=== PATIENT | male | born 1955 | race African-American/Black ===

== ENCOUNTER 2022-04-14 14:12 | Inpatient (IN) | payer MEDICAID ==
[~2022-04-14] VITALS: Ht 170.2 cm; Wt 80.7 kg
[2022-04-14] MEDS ORDERED: NITROGLYCERIN OINT 1GM/INCH UDPKT TD ONE (15:15)
[2022-04-14] MEDS ORDERED: ASPIRIN 81MG TABLET PO ONE (15:15)
[2022-04-14] MEDS ORDERED: FUROSEMIDE 40MG/4ML VIAL IV ONE (15:15)
[2022-04-14 16:50] LABS: HEMATOCRIT. 34.7 % (42.0-52.0); HEMOGLOBIN. 10.8 g/dL (14.0-18.0); MEAN CORPUSCULAR HEMOGLOBIN 22.7 pg (28.0-32.0); MEAN CORPUSCULAR VOLUME 72.8 fL (80.0-94.0); MEAN PLATELET VOLUME 8.8 fl (7.4-10.4); PLATELET 195 x1000/uL (130-400); RED BLOOD CELL COUNT 4.77 mill/uL (4.7-6.1)
[2022-04-14 17:01] LABS: INR 1.3; PARTIAL THROMBOPLASTIN TIME 28.8 sec (23.4-31.0); PROTHROMBIN TIME 14.1 sec (9.6-11.0)
[2022-04-14 17:04] LABS: CHLORIDE 103 mEq/L (98-107)
[2022-04-14] MEDS ORDERED: POTASSIUM CHLORIDE 20MEQ TABLET SR PO ONE (18:00)
[2022-04-14 19:07] LABS: PLATELET ESTIMATE NORMAL
[2022-04-15] MEDS ORDERED: ACETAMINOPHEN 325MG TABLET PO PRN (08:00)
[2022-04-15] MEDS ORDERED: ONDANSETRON HCL 4MG/2ML INJ IV PRN (08:00)
[2022-04-15] MEDS: TAMSULOSIN HCL 0.4MG SR CAPSULE PO SCH (08:55)
[2022-04-15] MEDS: POTASSIUM CHLORIDE 20MEQ TABLET SR PO SCH (08:55)
[2022-04-15] MEDS: FUROSEMIDE 100MG/10ML VIAL IVP SCH ×2 (08:55→18:46)
[2022-04-15] MEDS: CARVEDILOL 12.5MG TABLET PO SCH ×2 (08:59→20:55)
[2022-04-15] MEDS: COLCHICINE 0.6MG TABLET PO SCH (09:20)
[2022-04-15 10:00] VITALS: BP 130/89
[2022-04-15 12:00] VITALS: BP 126/80
[2022-04-15] MEDS ORDERED: CARV25TA47 MT (13:53)
[2022-04-15] MEDS ORDERED: COLC0.6C3 MT (13:53)
[2022-04-15] MEDS ORDERED: BUME2TAB7 MT (13:53)
[2022-04-15] MEDS ORDERED: XAR15 MT (13:53)
[2022-04-15] MEDS ORDERED: ALLO100T MT (13:53)
[2022-04-15] MEDS ORDERED: ROSU20TA2 MT (13:53)
[2022-04-15] MEDS ORDERED: POTA-205 MT (13:53)
[2022-04-15] MEDS ORDERED: SPIR25TA6 MT (13:53)
[2022-04-15 16:00] VITALS: BP 112/85
[2022-04-15 18:04] VITALS: BP 130/89
[2022-04-15] MEDS: RIVAROXABAN 15 MG TABLET PO SCH (18:46)
[2022-04-15 20:00] VITALS: BP 119/86
[2022-04-16] VITALS: BP 110/86
[2022-04-16 04:00] VITALS: BP 129/90
[2022-04-16 08:00] VITALS: BP 129/96
[2022-04-16] MEDS: POTASSIUM CHLORIDE 20MEQ TABLET SR PO SCH (09:08)
[2022-04-16] MEDS: FUROSEMIDE 100MG/10ML VIAL IVP SCH ×2 (09:08→17:40)
[2022-04-16] MEDS: TAMSULOSIN HCL 0.4MG SR CAPSULE PO SCH (09:08)
[2022-04-16] MEDS: COLCHICINE 0.6MG TABLET PO SCH (09:08)
[2022-04-16] MEDS: CARVEDILOL 12.5MG TABLET PO SCH ×2 (09:08→20:34)
[2022-04-16 12:00] VITALS: BP 127/89
[2022-04-16] MEDS ORDERED: METOLAZONE 2.5MG TABLET PO SCH (13:00)
[2022-04-16 16:00] VITALS: BP 122/83
[2022-04-16] MEDS: SPIRONOLACTONE 25MG TABLET PO SCH (17:40)
[2022-04-16] MEDS: RIVAROXABAN 15 MG TABLET PO SCH (17:40)
[2022-04-16 20:00] VITALS: BP 118/83
[2022-04-17] VITALS: BP 121/86
[2022-04-17 04:00] VITALS: BP 113/79
[2022-04-17] MEDS: FUROSEMIDE 100MG/10ML VIAL IVP SCH ×2 (06:19→16:17)
[2022-04-17 08:00] VITALS: BP 120/86
[2022-04-17] MEDS: POTASSIUM CHLORIDE 20MEQ TABLET SR PO SCH (08:41)
[2022-04-17] MEDS: COLCHICINE 0.6MG TABLET PO SCH (08:41)
[2022-04-17] MEDS: SPIRONOLACTONE 25MG TABLET PO SCH (08:42)
[2022-04-17] MEDS: CARVEDILOL 12.5MG TABLET PO SCH ×2 (08:42→21:53)
[2022-04-17 09:15] LABS: HEMATOCRIT. 35.8 % (42.0-52.0); HEMOGLOBIN. 11.1 g/dL (14.0-18.0); MEAN CORPUSCULAR HEMOGLOBIN 22.5 pg (28.0-32.0); MEAN CORPUSCULAR VOLUME 72.8 fL (80.0-94.0); MEAN PLATELET VOLUME 8.9 fl (7.4-10.4); PLATELET 216 x1000/uL (130-400); RED BLOOD CELL COUNT 4.91 mill/uL (4.7-6.1)
[2022-04-17] MEDS: TAMSULOSIN HCL 0.4MG SR CAPSULE PO SCH (09:29)
[2022-04-17] MEDS ORDERED: POTASSIUM CHLORIDE 20MEQ TABLET SR PO NR (11:00)
[2022-04-17 12:00] VITALS: BP 127/88
[2022-04-17] MEDS ORDERED: POTASSIUM CHLORIDE INJ 40 MEQ in DEXT 5% WATER 500 ML IV NR (12:00)
[2022-04-17 13:06] LABS: FERRITIN 47 ng/mL (22-322)
[2022-04-17 13:09] LABS: NUCLEATED RED BLOOD CELLS 1 /100 WBC; PLATELET ESTIMATE NORMAL
[2022-04-17 13:11] LABS: INR 1.7; PROTHROMBIN TIME 17.1 sec (9.6-11.0)
[2022-04-17 13:17] LABS: HEPATITIS B SURFACE ANTIGEN NEGATIVE
[2022-04-17 14:52] LABS: VITAMIN B12 SERUM 710 pg/mL (211-911)
[2022-04-17 16:00] VITALS: BP 101/62
[2022-04-17 20:00] VITALS: BP 119/81
[2022-04-18] VITALS: BP 106/73
[2022-04-18 04:00] VITALS: BP 128/86
[2022-04-18 06:21] LABS: HEMATOCRIT. 34.5 % (42.0-52.0); HEMOGLOBIN. 10.8 g/dL (14.0-18.0); MEAN CORPUSCULAR VOLUME 73.3 fL (80.0-94.0); MEAN PLATELET VOLUME 9.1 fl (7.4-10.4); PLATELET 190 x1000/uL (130-400); RED BLOOD CELL COUNT 4.71 mill/uL (4.7-6.1); RED CELL DISTRIBUTION WIDTH 22.1 % (11.6-14.6)
[2022-04-18] MEDS: FUROSEMIDE 100MG/10ML VIAL IVP SCH ×2 (06:59→17:15)
[2022-04-18 07:42] LABS: HEPATITIS B SURFACE ANTIGEN NEGATIVE
[2022-04-18 08:00] VITALS: BP 146/92
[2022-04-18] MEDS: POTASSIUM CHLORIDE 20MEQ TABLET SR PO SCH (08:48)
[2022-04-18] MEDS: COLCHICINE 0.6MG TABLET PO SCH (08:49)
[2022-04-18] MEDS: CARVEDILOL 12.5MG TABLET PO SCH (08:56)
[2022-04-18] MEDS: TAMSULOSIN HCL 0.4MG SR CAPSULE PO SCH (08:56)
[2022-04-18] MEDS ORDERED: MAGNESIUM OXIDE 400MG TABLET PO SCH (09:00)
[2022-04-18] MEDS: SPIRONOLACTONE 25MG TABLET PO SCH (09:02)
[2022-04-18] MEDS ORDERED: ALBUMIN HUMAN 25GM/100ML (25%) IV NR (10:00)
[2022-04-18] MEDS ORDERED: CARV25TA47 MT (10:14)
[2022-04-18] MEDS ORDERED: ROSU20TA2 MT (10:14)
[2022-04-18] MEDS ORDERED: ALLO100T MT (10:14)
[2022-04-18] MEDS ORDERED: COLC0.6C3 MT (10:14)
[2022-04-18] MEDS ORDERED: POTA-205 MT (10:14)
[2022-04-18] MEDS ORDERED: SPIR25TA6 MT (10:14)
[2022-04-18] MEDS ORDERED: BUME2TAB7 MT (10:14)
[2022-04-18 11:15] LABS: INR 1.4; PROTHROMBIN TIME 14.5 sec (9.6-11.0)
[2022-04-18 15:13] LABS: PLATELET ESTIMATE NORMAL
[2022-04-18 16:00] VITALS: BP 110/80
[2022-04-18 20:00] VITALS: BP 116/71
== END 2022-04-18 21:20 | disposition home or self-care (01) | DRG 194 ==
LOC: ER 14:12 → EDBEDREQ 19:03 → 7WST 04-15 00:14 → MICUSO 04-15 01:44 → 7EST 04-15 10:00
PROVIDERS: ADMIT Internal Medicine; ATTEND Internal Medicine
DX: I11.0 Hypertensive heart disease with heart failure (principal); R18.8 Other ascites; K74.60 Unspecified cirrhosis of liver; I50.23 Acute on chronic systolic (congestive) heart failure; D50.9 Iron deficiency anemia, unspecified; K64.9 Unspecified hemorrhoids; K21.9 Gastro-esophageal reflux disease without esophagitis; E87.6 Hypokalemia; M10.9 Gout, unspecified; Z85.118 Personal history of other malignant neoplasm of bronchus and lung; Z85.46 Personal history of malignant neoplasm of prostate; Z91.199 Patient's noncompliance with other medical treatment and regimen due to unspecified reason; Z91.013 Allergy to seafood; Z79.82 Long term (current) use of aspirin
CPT/HCPCS: 36415; 71045; 76700; 80048; 80053; 80076; 82140; 82607; 82728; 82746; 83540; 83550; 83735; 83880; 84132; 84484; 85025; 85044; 86705; 86709; 86803; 87340; 93005; 93306; 93976; 99285; J1940; J3480; J7060; P9047

== ENCOUNTER 2022-10-29 02:04 | Inpatient (IN) | payer MEDICAID ==
[~2022-10-29] VITALS: Ht 170.2 cm; Wt 71.7 kg
[~2022-10-29 02:04] MED LIST: ALLO100T MT; BUME2TAB7 MT; CARV25TA47 MT; COLC0.6C3 MT; POTA-205 MT; ROSU20TA2 MT; SPIR25TA6 MT; XAR15 MT
[2022-10-29] MEDS ORDERED: ONDANSETRON HCL 4MG/2ML INJ IV STA (03:24)
[2022-10-29] MEDS ORDERED: MORPHINE SULFATE 4 MG/ML CPJ (NOT FOR IM USE) IV STA (03:24)
[2022-10-29] MEDS ORDERED: FUROSEMIDE 40MG/4ML VIAL IVP ONE (03:30)
[2022-10-29 03:42] LABS: CHLORIDE 107 mEq/L (98-107); INDEX HEMOLYSI 1 (1-3); INDEX ICTERIC 1 (1-4); INDEX LIPEMIC 1 (1-3); POTASSIUM 3.3 mEq/L (3.5-5.1); SODIUM 138 mEq/L (136-145)
[2022-10-29 03:44] LABS: BASOPHILS % 0.7 % (0.0-2.0); DIFFERENTIAL COMMENT 0; EOSINOPHILS % 0.4 % (0.0-5.0); HEMATOCRIT. 41.9 % (42.0-52.0); HEMOGLOBIN. 12.9 g/dL (14.0-18.0); LYMPHOCYTES % 7.5 % (20.0-50.0); MEAN CORPUSCULAR HEMOGLOBIN 23.3 pg (28.0-32.0); MEAN CORPUSCULAR HGB CONC 30.8 g/dL (31.0-37.0); MEAN CORPUSCULAR VOLUME 75.5 fL (80.0-94.0); MEAN PLATELET VOLUME 8.3 fl (7.4-10.4); MONOCYTES % 9.4 % (2.0-8.0); PLATELET 305 x1000/uL (130-400); RED BLOOD CELL COUNT 5.55 mill/uL (4.7-6.1); RED CELL DISTRIBUTION WIDTH 21.6 % (11.6-14.6); WHITE BLOOD COUNT 6.8 x1000/uL (4.5-11.0)
[2022-10-29 03:51] LABS: ALANINE AMINOTRANSFERASE 16 IU/L (13-61); ALBUMIN 2.9 g/dL (3.4-5.0); ASPARTATE AMINOTRANSFERASE 51 IU/L (15-37); BILIRUBIN TOTAL 1.5 mg/dL (0.1-1.0); CALCIUM 9.3 mg/dL (8.5-10.1); CARBON DIOXIDE 24 mEq/L (21-32); CREATININE 2.2 mg/dL (0.6-1.3); GLUCOSE 98 mg/dL (70-105); NT PRO B-TYPE NATRIURETIC PEP 22216 pg/mL (5-125); PROTEIN TOTAL 7.2 g/dL (6.0-8.3)
[2022-10-29 03:56] LABS: UREA NITROGEN BLOOD 81 mg/dL (7-21)
[2022-10-29 03:57] LABS: TROPONIN I HIGH SENSITIVITY 1778 ng/L (<78)
[2022-10-29 03:58] LABS: D-DIMER 7.06 mg/L FEU (<0.50); INR 1.3; PROTHROMBIN TIME 13.6 sec (9.6-11.0)
[2022-10-29] MEDS ORDERED: IOHEXOL-350 100 ML BOTTLE ONE (05:57)
[2022-10-29 06:31] LABS: TROPONIN I HIGH SENSITIVITY 1626 ng/L (<78)
[2022-10-29 13:57] VITALS: PULSE 92; RESP 16; O2SAT 100
[2022-10-29] MEDS: IPRATROPIUM/ALBUTEROL 0.5-3(2.5)MG/3ML NEB HHN SCH ×2 (13:57→21:36)
[2022-10-29 15:10] VITALS: BP_SYST 114; BP_DIAS 72; BP_DIAS 77; PULSE 98; RESP 21; TEMP 96.8
[2022-10-29 20:00] VITALS: BP 115/72; PULSE 100; RESP 20; TEMP 98.5
[2022-10-29 20:44] VITALS: PULSE 105; RESP 18; O2SAT 97
[2022-10-30] VITALS (9 sets, daily range): BP systolic 92–112; BP diastolic 57–68; PULSE 86–108; RESP 16–20; TEMP 97.7–98.4; O2SAT 92–98
[2022-10-30 06:22] LABS: HEMATOCRIT. 35.7 % (42.0-52.0); HEMOGLOBIN. 11.5 g/dL (14.0-18.0); MEAN CORPUSCULAR HEMOGLOBIN 23.9 pg (28.0-32.0); MEAN CORPUSCULAR HGB CONC 32.1 g/dL (31.0-37.0); MEAN CORPUSCULAR VOLUME 74.5 fL (80.0-94.0); MEAN PLATELET VOLUME 8.3 fl (7.4-10.4); PLATELET 249 x1000/uL (130-400); RED BLOOD CELL COUNT 4.79 mill/uL (4.7-6.1)
[2022-10-30 06:31] LABS: CALCIUM 8.8 mg/dL (8.5-10.1)
[2022-10-30 06:35] LABS: CREATININE 2.2 mg/dL (0.6-1.3)
[2022-10-30 06:41] LABS: POTASSIUM 2.8 mEq/L (3.5-5.1)
[2022-10-30 07:08] LABS: DIFFERENTIAL COMMENT 1
[2022-10-30] MEDS ORDERED: SODIUM BICARBONATE 4% (2.4MEQ) 5ML VIAL IV ONE (08:12)
[2022-10-30] MEDS ORDERED: LIDOCAINE HCL 1% 10 MG/ML 10ML VIAL ONE (08:13)
[2022-10-30] MEDS ORDERED: NALOXONE HCL 0.4MG/ML VIAL IV PRN (08:30)
[2022-10-30] MEDS: POTASSIUM CHLORIDE 20MEQ/PACKET PO SCH ×3 (08:39→16:48)
[2022-10-30] MEDS ORDERED: FUROSEMIDE 40MG/4ML VIAL IVP SCH (09:00)
[2022-10-30] MEDS: IPRATROPIUM/ALBUTEROL 0.5-3(2.5)MG/3ML NEB HHN SCH ×4 (10:05→21:29)
[2022-10-30 10:49] LABS: ANISOCYTOSIS 2+; MICROCYTOSIS 1+; PLATELET ESTIMATE NORMAL
[2022-10-30] MEDS: HYDROCODONE/ACETAMINOPHEN 5/325MG TABLET PO PRN ×2 (12:09→19:03)
[2022-10-30] MEDS ORDERED: KETOROLAC 10MG TABLET PO PRN (14:45)
[2022-10-30] MEDS ORDERED: CEFTRIAXONE 1GM PREMIX 50 ML IV SCH (14:45)
[2022-10-30] MEDS ORDERED: KETOROLAC 10MG TABLET PO SCH (14:45)
[2022-10-30] MEDS ORDERED: IPRATROPIUM/ALBUTEROL 0.5-3(2.5)MG/3ML NEB HHN PRN (15:15)
[2022-10-30] MEDS ORDERED: ALBUMIN HUMAN 12.5GM/50ML (25%) IV NR (15:30)
[2022-10-30] MEDS ORDERED: CLONIDINE 0.1MG TABLET PO PRN (15:30)
[2022-10-30] MEDS ORDERED: ENOXAPARIN 30MG/0.3ML SYR SUBCUT SCH (16:00)
[2022-10-30] MEDS: CEFTRIAXONE 1,000 MG in DEXTROSE 5% WATER 50 ML IV SCH (16:13)
[2022-10-30 16:49] LABS: T4 FREE 1.1 ng/dL (0.76-1.46); THYROID STIMULATING HORMONE 6.6 uIU/mL (0.36-3.74)
[2022-10-30 16:56] LABS: TROPONIN I HIGH SENSITIVITY 2502 ng/L (<78)
[2022-10-30 17:08] LABS: FOLIC ACID (FOLATE) SERUM 6.5 ng/mL (>5.38)
[2022-10-30 17:53] LABS: CLARITY URINE CLEAR (CLEAR); COLOR URINE YELLOW (YELLOW); GLUCOSE URINE NEGATIVE (NEGATIVE); PROTEIN URINE NEGATIVE (NEGATIVE); SPECIFIC GRAVITY URINE 1.009 (1.005-1.030)
[2022-10-30 17:54] LABS: KETONES URINE NEGATIVE (NEGATIVE); LEUKOCYTE ESTERASE URINE NEGATIVE (NEGATIVE); NITRITE URINE NEGATIVE (NEGATIVE); OCCULT BLOOD URINE NEGATIVE (NEGATIVE); UROBILINOGEN URINE 0.2 E.U./dL (0.2-1.0)
[2022-10-30] MEDS ORDERED: FUROSEMIDE 100MG/10ML VIAL IVP SCH (18:00)
[2022-10-30] MEDS: BUMETANIDE 1MG/4ML VIAL IV SCH (18:00)
[2022-10-30 19:38] LABS: ALBUMIN 2.4 g/dL (3.4-5.0)
[2022-10-30 21:35] LABS: BODY FLUID RBC 305 /cu mm (0-2000); BODY FLUID WBC 60 /cu mm (0-200)
[2022-10-30 21:36] LABS: BODY FLUID MONOCYTES 12 %
[2022-10-30] MEDS: FAMOTIDINE 20MG TABLET PO SCH (21:51)
[2022-10-30 22:48] LABS: TROPONIN I HIGH SENSITIVITY 2141 ng/L (<78)
[2022-10-31] VITALS (9 sets, daily range): BP systolic 98–134; BP diastolic 60–97; PULSE 98–108; RESP 14–20; TEMP 97.7–98.2; O2SAT 97–100
[2022-10-31] MEDS: IPRATROPIUM/ALBUTEROL 0.5-3(2.5)MG/3ML NEB HHN SCH ×4 (02:09→20:53)
[2022-10-31 05:42] LABS: HEMATOCRIT. 36.3 % (42.0-52.0); HEMOGLOBIN. 11.7 g/dL (14.0-18.0); MEAN CORPUSCULAR HEMOGLOBIN 23.8 pg (28.0-32.0); MEAN CORPUSCULAR HGB CONC 32.1 g/dL (31.0-37.0); MEAN CORPUSCULAR VOLUME 74.3 fL (80.0-94.0); MEAN PLATELET VOLUME 8.1 fl (7.4-10.4); PLATELET 221 x1000/uL (130-400); RED BLOOD CELL COUNT 4.89 mill/uL (4.7-6.1); RED CELL DISTRIBUTION WIDTH 21.1 % (11.6-14.6); WHITE BLOOD COUNT 5.6 x1000/uL (4.5-11.0)
[2022-10-31 05:43] LABS: DIFFERENTIAL COMMENT 1
[2022-10-31] MEDS: BUMETANIDE 1MG/4ML VIAL IV SCH ×2 (06:28→18:54)
[2022-10-31 07:29] LABS: CALCIUM 8.2 mg/dL (8.5-10.1); CREATININE 1.9 mg/dL (0.6-1.3)
[2022-10-31 07:37] LABS: POTASSIUM 2.7 mEq/L (3.5-5.1)
[2022-10-31] MEDS: ASPIRIN 81MG TABLET PO SCH (08:57)
[2022-10-31] MEDS: KCL 20MEQ/100ML PREMIX 100 ML IV SCH ×5 (08:57→23:58)
[2022-10-31] MEDS: ENOXAPARIN 40MG/0.4ML SYR SUBCUT SCH (08:58)
[2022-10-31 13:08] LABS: CALCIUM 8.3 mg/dL (8.5-10.1)
[2022-10-31 13:13] LABS: CREATININE 1.8 mg/dL (0.6-1.3)
[2022-10-31 13:14] LABS: POTASSIUM 2.6 mEq/L (3.5-5.1)
[2022-10-31] MEDS ORDERED: MAGNESIUM 2 G PREMIX 50 ML IV SCH (15:00)
[2022-10-31] MEDS: IRON SUCROSE COMPLEX 100 MG/5 ML ML IV SCH (19:11)
[2022-10-31] MEDS: HYDROCODONE/ACETAMINOPHEN 5/325MG TABLET PO PRN (20:46)
[2022-10-31] MEDS: FAMOTIDINE 20MG TABLET PO SCH (21:19)
[2022-10-31] MEDS: CEFTRIAXONE 1,000 MG in DEXTROSE 5% WATER 50 ML IV SCH (21:24)
[2022-10-31 21:34] LABS: CALCIUM 8.4 mg/dL (8.5-10.1); CREATININE 1.6 mg/dL (0.6-1.3)
[2022-10-31 21:35] LABS: POTASSIUM 3.3 mEq/L (3.5-5.1)
[2022-10-31 21:41] LABS: PROSTRATE SPECIFIC AG TOTAL 5.65 ng/mL (0.0-4.0)
[2022-10-31 21:42] LABS: CARCINO EMBRYONIC ANTIGEN 0.9 ng/ml
[2022-11-01] VITALS (11 sets, daily range): BP systolic 100–143; BP diastolic 57–80; PULSE 96–118; RESP 13–20; TEMP 97.8–99.4; O2SAT 96–100
[2022-11-01] MEDS: HYDROCODONE/ACETAMINOPHEN 5/325MG TABLET PO PRN (01:22)
[2022-11-01] MEDS: KCL 20MEQ/100ML PREMIX 100 ML IV SCH ×3 (02:11→19:16)
[2022-11-01] MEDS ORDERED: KCL 20MEQ/100ML PREMIX 100 ML IV SCH (02:15)
[2022-11-01] MEDS: IPRATROPIUM/ALBUTEROL 0.5-3(2.5)MG/3ML NEB HHN SCH ×4 (03:25→20:44)
[2022-11-01] MEDS: BUMETANIDE 1MG/4ML VIAL IV SCH ×2 (06:14→19:15)
[2022-11-01 07:21] LABS: HEMATOCRIT. 37.4 % (42.0-52.0); HEMOGLOBIN. 12.2 g/dL (14.0-18.0); MEAN CORPUSCULAR HEMOGLOBIN 23.9 pg (28.0-32.0); MEAN CORPUSCULAR HGB CONC 32.5 g/dL (31.0-37.0); MEAN CORPUSCULAR VOLUME 73.4 fL (80.0-94.0); MEAN PLATELET VOLUME 8.6 fl (7.4-10.4); PLATELET 261 x1000/uL (130-400); RED CELL DISTRIBUTION WIDTH 21.2 % (11.6-14.6); WHITE BLOOD COUNT 6.6 x1000/uL (4.5-11.0)
[2022-11-01 07:39] LABS: DIFFERENTIAL COMMENT 1
[2022-11-01 08:14] LABS: ALBUMIN 2.3 g/dL (3.4-5.0); BILIRUBIN DIRECT 0.4 mg/dL (0.0-0.2); BILIRUBIN TOTAL 1.2 mg/dL (0.1-1.0); CALCIUM 8.3 mg/dL (8.5-10.1); CREATININE 1.7 mg/dL (0.6-1.3); PROTEIN TOTAL 6.1 g/dL (6.0-8.3)
[2022-11-01 08:27] LABS: POTASSIUM 2.7 mEq/L (3.5-5.1)
[2022-11-01] MEDS: ASPIRIN 81MG TABLET PO SCH (10:28)
[2022-11-01] MEDS: ENOXAPARIN 40MG/0.4ML SYR SUBCUT SCH (10:29)
[2022-11-01 11:35] LABS: MICROCYTOSIS 1+; PLATELET ESTIMATE NORMAL
[2022-11-01 11:36] LABS: ANISOCYTOSIS 1+
[2022-11-01 15:06] LABS: BG BASE EXCESS 8.2 mmol/L (-2.0-2.0); BG CARBOXYHEMOGLOBIN 1.3 % (0.5-1.5); BG DEOXYHEMOGLOBIN 5.4 % (0.0-5.0); BG FRACTION INSPIRED OXYGEN 21; BG METHEMOGLOBIN 0.5 % (0.0-1.5); BG OXYGEN SATURATION 94.5 % (92.0-98.5); BG OXYHEMOGLOBIN 92.8 % (94.0-97.0); BG PCO2 41.2 mmHg (35.0-45.0); BG PH 7.508 (7.350-7.450); BG PO2 69.8 mmHg (75.0-100.0); BG SAMPLE SITE RIGHT BRACHIAL; BG TOTAL HEMOGLOBIN 12.6 g/dL (12.0-18.0); BG VENT MODE ROOM AIR
[2022-11-01 16:16] LABS: CALCIUM 8.4 mg/dL (8.5-10.1)
[2022-11-01 16:20] LABS: CREATININE 1.6 mg/dL (0.6-1.3)
[2022-11-01 16:42] LABS: POTASSIUM 2.4 mEq/L (3.5-5.1)
[2022-11-01] MEDS ORDERED: KCL 20MEQ/100ML PREMIX 100 ML IV NR (16:51)
[2022-11-01] MEDS: CEFTRIAXONE 1,000 MG in DEXTROSE 5% WATER 50 ML IV SCH (19:09)
[2022-11-01] MEDS: IRON SUCROSE COMPLEX 100 MG/5 ML ML IV SCH (19:15)
[2022-11-01] MEDS: APIXABAN 5 MG TABLET PO SCH ×2 (19:16→21:00)
[2022-11-01] MEDS ORDERED: POTASSIUM CHLORIDE 20MEQ TABLET SR PO NR (21:00)
[2022-11-01] MEDS: FAMOTIDINE 20MG TABLET PO SCH (22:21)
[2022-11-02] MEDS: IPRATROPIUM/ALBUTEROL 0.5-3(2.5)MG/3ML NEB HHN SCH ×3 (00:53→22:06)
[2022-11-02 03:43] VITALS: BP 108/79; PULSE 110; TEMP 97.8
[2022-11-02 04:26] LABS: PLATELET ESTIMATE NORMAL
[2022-11-02 06:15] LABS: HEMATOCRIT. 36.1 % (42.0-52.0); HEMOGLOBIN. 11.6 g/dL (14.0-18.0); MEAN CORPUSCULAR HEMOGLOBIN 23.7 pg (28.0-32.0); MEAN CORPUSCULAR HGB CONC 32.1 g/dL (31.0-37.0); MEAN CORPUSCULAR VOLUME 73.7 fL (80.0-94.0); MEAN PLATELET VOLUME 8.6 fl (7.4-10.4); PLATELET 241 x1000/uL (130-400)
[2022-11-02 06:17] LABS: DIFFERENTIAL COMMENT 1
[2022-11-02 06:24] LABS: ALBUMIN 2.2 g/dL (3.4-5.0); BILIRUBIN DIRECT 0.6 mg/dL (0.0-0.2); BILIRUBIN TOTAL 1.3 mg/dL (0.1-1.0); CALCIUM 8.4 mg/dL (8.5-10.1); CREATININE 1.5 mg/dL (0.6-1.3); PROTEIN TOTAL 5.9 g/dL (6.0-8.3)
[2022-11-02 06:27] LABS: POTASSIUM 2.8 mEq/L (3.5-5.1)
[2022-11-02] MEDS: KCL 20MEQ/100ML PREMIX 100 ML IV SCH ×2 (06:27→09:08)
[2022-11-02] MEDS: BUMETANIDE 1MG/4ML VIAL IV SCH ×2 (06:30→18:48)
[2022-11-02 08:00] VITALS: BP 110/78; PULSE 106; RESP 22; TEMP 97.4
[2022-11-02] MEDS ORDERED: LOPERAMIDE HCL 2MG CAPSULE PO NR (08:30)
[2022-11-02] MEDS: APIXABAN 5 MG TABLET PO SCH ×2 (09:08→22:10)
[2022-11-02 10:09] LABS: ALPHA FETOPROTEIN TUMOR MARKER 5.6 ng/mL (0.0-8.4)
[2022-11-02] MEDS ORDERED: APIX5TAB4 PO ×3 (10:38→14:23)
[2022-11-02] MEDS ORDERED: POTA-205 MT ×2 (10:38→14:23)
[2022-11-02] MEDS ORDERED: BUME1TAB8 MT ×2 (10:44→14:23)
[2022-11-02 12:00] VITALS: BP 95/70; PULSE 106; RESP 20; TEMP 98.5
[2022-11-02 13:07] LABS: CALCIUM 8.7 mg/dL (8.5-10.1); CREATININE 1.6 mg/dL (0.6-1.3); POTASSIUM 3.2 mEq/L (3.5-5.1)
[2022-11-02] MEDS ORDERED: FERR325T6 MT (14:27)
[2022-11-02] MEDS ORDERED: IMOD PO (14:27)
[2022-11-02] MEDS ORDERED: SPIR25TA MT (14:30)
[2022-11-02] MEDS: CEFTRIAXONE 1,000 MG in DEXTROSE 5% WATER 50 ML IV SCH (15:22)
[2022-11-02 16:00] VITALS: BP 108/76; PULSE 105; RESP 4; TEMP 97.8
[2022-11-02] MEDS ORDERED: LEVO-65 MT (16:16)
[2022-11-02] MEDS: IRON SUCROSE COMPLEX 100 MG/5 ML ML IV SCH (16:16)
[2022-11-02 16:52] VITALS: BP 108/76; PULSE 89; TEMP 98.8; O2SAT 100
[2022-11-02 20:00] VITALS: BP 117/79; PULSE 106; RESP 18; TEMP 97.1
[2022-11-02 20:54] LABS: ANISOCYTOSIS 2+; MICROCYTOSIS 2+; PLATELET ESTIMATE NORMAL
[2022-11-02 20:55] LABS: TARGET CELLS 1+
[2022-11-02] MEDS: FAMOTIDINE 20MG TABLET PO SCH (22:10)
[2022-11-03] VITALS: BP 116/73; PULSE 108; RESP 20; TEMP 97.1
[2022-11-03 04:00] VITALS: BP 143/88; PULSE 112; RESP 18; TEMP 97.2
[2022-11-03] MEDS: BUMETANIDE 1MG/4ML VIAL IV SCH ×2 (06:00→18:00)
[2022-11-03 08:00] VITALS: BP 115/60; PULSE 105; RESP 21; TEMP 98.1
[2022-11-03] MEDS ORDERED: POTASSIUM CHLORIDE 20MEQ TABLET SR PO NR (08:15)
[2022-11-03] MEDS ORDERED: POTASSIUM CHLORIDE 20MEQ TABLET SR PO ONE (08:30)
[2022-11-03] MEDS: APIXABAN 5 MG TABLET PO SCH (08:44)
[2022-11-03] MEDS: TAMSULOSIN HCL 0.4MG SR CAPSULE PO SCH (08:44)
[2022-11-03] MEDS: IPRATROPIUM/ALBUTEROL 0.5-3(2.5)MG/3ML NEB HHN SCH ×2 (09:10→14:41)
[2022-11-03 10:59] LABS: BASOPHILS % 0.8 % (0.0-2.0); DIFFERENTIAL COMMENT 0; EOSINOPHILS % 1.4 % (0.0-5.0); HEMOGLOBIN. 11.6 g/dL (14.0-18.0); LYMPHOCYTES % 8.1 % (20.0-50.0); MEAN CORPUSCULAR HEMOGLOBIN 23.3 pg (28.0-32.0); MEAN CORPUSCULAR HGB CONC 31.4 g/dL (31.0-37.0); MEAN CORPUSCULAR VOLUME 74.1 fL (80.0-94.0); MEAN PLATELET VOLUME 7.8 fl (7.4-10.4); MONOCYTES % 14.3 % (2.0-8.0); NEUTROPHILS % 75.4 % (40.0-76.0); PLATELET 254 x1000/uL (130-400); RED BLOOD CELL COUNT 4.99 mill/uL (4.7-6.1); RED CELL DISTRIBUTION WIDTH 20.9 % (11.6-14.6); WHITE BLOOD COUNT 7.8 x1000/uL (4.5-11.0)
[2022-11-03 11:03] LABS: POTASSIUM 2.9 mEq/L (3.5-5.1)
[2022-11-03 11:08] LABS: CALCIUM 8.7 mg/dL (8.5-10.1); CREATININE 1.7 mg/dL (0.6-1.3)
[2022-11-03 12:00] VITALS: BP 88/63; PULSE 104; RESP 20; TEMP 98
[2022-11-03] MEDS: CEFTRIAXONE 1,000 MG in DEXTROSE 5% WATER 50 ML IV SCH (13:29)
[2022-11-03] MEDS: KCL 20MEQ/100ML PREMIX 100 ML IV SCH ×2 (15:32→18:29)
[2022-11-03 16:00] VITALS: BP 92/59; PULSE 101; RESP 20; TEMP 98.3
[2022-11-03] MEDS: FAMOTIDINE 20MG TABLET PO SCH (22:34)
[2022-11-03] MEDS: ENOXAPARIN 80MG/0.8ML SYR SUBCUT SCH (22:35)
[2022-11-03 22:47] VITALS: BP 118/91; PULSE 104; RESP 17; TEMP 98.9
[2022-11-04] VITALS: BP 112/75; PULSE 103; RESP 21; TEMP 98.5
[2022-11-04 04:00] VITALS: BP 137/94; PULSE 107; RESP 12; TEMP 98.1
[2022-11-04] MEDS: BUMETANIDE 1MG/4ML VIAL IV SCH ×2 (06:00→17:26)
[2022-11-04 06:47] LABS: HEMATOCRIT. 34.6 % (42.0-52.0); HEMOGLOBIN. 11.1 g/dL (14.0-18.0); MEAN CORPUSCULAR HEMOGLOBIN 23.6 pg (28.0-32.0); MEAN CORPUSCULAR HGB CONC 32.1 g/dL (31.0-37.0); MEAN CORPUSCULAR VOLUME 73.6 fL (80.0-94.0); MEAN PLATELET VOLUME 8.2 fl (7.4-10.4); PLATELET 255 x1000/uL (130-400); RED CELL DISTRIBUTION WIDTH 20.7 % (11.6-14.6); WHITE BLOOD COUNT 7.1 x1000/uL (4.5-11.0)
[2022-11-04 06:51] LABS: CALCIUM 8.5 mg/dL (8.5-10.1); POTASSIUM 2.9 mEq/L (3.5-5.1)
[2022-11-04 06:54] LABS: CREATININE 1.6 mg/dL (0.6-1.3)
[2022-11-04 07:02] LABS: DIFFERENTIAL COMMENT 1
[2022-11-04] MEDS: LOPERAMIDE HCL 2MG CAPSULE PO PRN (07:59)
[2022-11-04] MEDS: TAMSULOSIN HCL 0.4MG SR CAPSULE PO SCH (07:59)
[2022-11-04 08:00] VITALS: BP 133/66; PULSE 105; RESP 18; TEMP 97.8
[2022-11-04] MEDS: ENOXAPARIN 80MG/0.8ML SYR SUBCUT SCH ×2 (08:00→21:22)
[2022-11-04] MEDS: POTASSIUM CHLORIDE 20MEQ TABLET SR PO SCH ×2 (08:08→17:24)
[2022-11-04] MEDS ORDERED: POTASSIUM CHLORIDE 20MEQ TABLET SR PO SCH (09:00)
[2022-11-04] MEDS ORDERED: POTASSIUM CHLORIDE INJ 40 MEQ in DEXT 5% WATER 250 ML IV NR (09:30)
[2022-11-04 12:00] VITALS: BP 114/78; PULSE 103; RESP 22; TEMP 98
[2022-11-04 15:15] LABS: ANISOCYTOSIS 2+; MICROCYTOSIS 2+; PLATELET ESTIMATE NORMAL
[2022-11-04 16:00] VITALS: BP 112/76; PULSE 106; RESP 20; TEMP 98.2
[2022-11-04] MEDS: LOSARTAN POTASSIUM 25 MG TABLET PO SCH (17:24)
[2022-11-04] MEDS: METOPROLOL SUCCINATE 50MG ER TABLET PO SCH (17:26)
[2022-11-04] MEDS: CEFTRIAXONE 1,000 MG in DEXTROSE 5% WATER 50 ML IV SCH (17:27)
[2022-11-04 20:00] VITALS: BP 116/72; PULSE 112; RESP 16; TEMP 97.7
[2022-11-04] MEDS: FAMOTIDINE 20MG TABLET PO SCH (21:21)
[2022-11-05] VITALS: BP 101/66; PULSE 109; RESP 20; TEMP 97.5
[2022-11-05 04:00] VITALS: BP 106/79; PULSE 102; RESP 18; TEMP 97.8
[2022-11-05] MEDS: BUMETANIDE 1MG/4ML VIAL IV SCH ×2 (05:43→18:25)
[2022-11-05 08:00] VITALS: BP 110/67; PULSE 101; RESP 20; TEMP 98
[2022-11-05] MEDS: LOSARTAN POTASSIUM 25 MG TABLET PO SCH (09:26)
[2022-11-05] MEDS: TAMSULOSIN HCL 0.4MG SR CAPSULE PO SCH (09:31)
[2022-11-05] MEDS: METOPROLOL SUCCINATE 50MG ER TABLET PO SCH (09:31)
[2022-11-05] MEDS: POTASSIUM CHLORIDE 20MEQ TABLET SR PO SCH ×2 (09:31→15:32)
[2022-11-05] MEDS: ENOXAPARIN 80MG/0.8ML SYR SUBCUT SCH (09:32)
[2022-11-05 12:07] VITALS: BP 105/84; PULSE 96; RESP 22; TEMP 97.9
[2022-11-05 12:17] LABS: POTASSIUM 5.2 mEq/L (3.5-5.1)
[2022-11-05 12:21] LABS: CALCIUM 9.1 mg/dL (8.5-10.1); CREATININE 1.8 mg/dL (0.6-1.3)
[2022-11-05 19:05] VITALS: BP 103/78; PULSE 89; RESP 20; TEMP 97.8
[2022-11-05 20:00] VITALS: BP 109/87; PULSE 92; RESP 10; TEMP 97.4
[2022-11-05] MEDS: HYDRALAZINE HCL 10MG TABLET PO SCH (22:00)
[2022-11-05] MEDS: FAMOTIDINE 20MG TABLET PO SCH (22:03)
[2022-11-05] MEDS: LOPERAMIDE HCL 2MG CAPSULE PO PRN (22:03)
[2022-11-06] VITALS (8 sets, daily range): BP systolic 91–129; BP diastolic 44–77; PULSE 85–95; RESP 12–20; TEMP 97.5–98.3
[2022-11-06] MEDS: HYDRALAZINE HCL 10MG TABLET PO SCH ×3 (06:00→22:00)
[2022-11-06] MEDS: BUMETANIDE 1MG/4ML VIAL IV SCH ×2 (06:00→22:45)
[2022-11-06 07:36] LABS: INR 1.3
[2022-11-06 07:41] LABS: CHLORIDE 100 mEq/L (98-107); INDEX HEMOLYSI 1 (1-3); INDEX ICTERIC 2 (1-4); INDEX LIPEMIC 1 (1-3); POTASSIUM 5.5 mEq/L (3.5-5.1); SODIUM 137 mEq/L (136-145)
[2022-11-06 07:50] LABS: HEMATOCRIT. 39.6 % (42.0-52.0); HEMOGLOBIN. 12.5 g/dL (14.0-18.0); MEAN CORPUSCULAR HEMOGLOBIN 23.6 pg (28.0-32.0); MEAN CORPUSCULAR HGB CONC 31.6 g/dL (31.0-37.0); MEAN CORPUSCULAR VOLUME 74.9 fL (80.0-94.0); MEAN PLATELET VOLUME 8.8 fl (7.4-10.4); PLATELET 292 x1000/uL (130-400); RED BLOOD CELL COUNT 5.29 mill/uL (4.7-6.1); RED CELL DISTRIBUTION WIDTH 20.7 % (11.6-14.6); WHITE BLOOD COUNT 7.1 x1000/uL (4.5-11.0)
[2022-11-06 07:52] LABS: ALANINE AMINOTRANSFERASE 26 IU/L (13-61); ALBUMIN 2.5 g/dL (3.4-5.0); ASPARTATE AMINOTRANSFERASE 67 IU/L (15-37); CALCIUM 9.2 mg/dL (8.5-10.1); CARBON DIOXIDE 29 mEq/L (21-32); CREATININE 2.4 mg/dL (0.6-1.3); GLUCOSE 83 mg/dL (70-105); PROTEIN TOTAL 6.6 g/dL (6.0-8.3); UREA NITROGEN BLOOD 68 mg/dL (7-21)
[2022-11-06 08:05] LABS: DIFFERENTIAL COMMENT 1
[2022-11-06] MEDS: METOPROLOL SUCCINATE 50MG ER TABLET PO SCH (09:00)
[2022-11-06] MEDS ORDERED: SODIUM POLYSTYRENE SULFONATE 15 G/60 ML BOT PO NR (09:00)
[2022-11-06] MEDS: TAMSULOSIN HCL 0.4MG SR CAPSULE PO SCH (09:00)
[2022-11-06] MEDS ORDERED: FUROSEMIDE 40MG/4ML VIAL IV NR (11:14)
[2022-11-06] MEDS ORDERED: DEXTROSE 50% WATER 50ML SYRINGE IV ONE ×2 (11:15)
[2022-11-06] MEDS ORDERED: INSULIN REGULAR (HUMULIN R) 300UNITS/3ML VIAL IV NR (11:15)
[2022-11-06] MEDS ORDERED: INSULIN REGULAR (HUMULIN R) UD 100 UNITS/ML SYR IV ONE (11:15)
[2022-11-06] MEDS ORDERED: CALCIUM CHLORIDE 1GM/10ML SYR IV NR (11:15)
[2022-11-06] MEDS ORDERED: NALOXONE HCL 0.4MG/ML VIAL IV PRN (14:15)
[2022-11-06] MEDS ORDERED: CEFAZOLIN SODIUM 1000MG/VIAL ONE (14:18)
[2022-11-06] MEDS ORDERED: ETOMIDATE 2MG/ML 10ML VIAL IV ONE (14:18)
[2022-11-06] MEDS ORDERED: LIDOCAINE HCL 1% 10 MG/ML 10ML VIAL ONE ×2 (14:18→15:15)
[2022-11-06] MEDS ORDERED: PHENYLEPHRINE HCL 10 MG/ML 1ML (IV VIAL) IV ONE (14:30)
[2022-11-06 14:40] LABS: POTASSIUM 4.9 mEq/L (3.5-5.1)
[2022-11-06 14:43] LABS: CALCIUM 9.8 mg/dL (8.5-10.1)
[2022-11-06 14:52] LABS: CREATININE 2.3 mg/dL (0.6-1.3)
[2022-11-06] MEDS ORDERED: HEPARIN 1000 UNITS/ML 10ML ONE (15:00)
[2022-11-06] MEDS ORDERED: HEPARIN SODIUM 1,000 UNIT/1ML VIAL IV ONE (15:03)
[2022-11-06] MEDS ORDERED: MIDAZOLAM HCL 2 MG/2 ML VIAL ONE ×2 (15:09→15:19)
[2022-11-06] MEDS ORDERED: BUPIVACAINE HCL/PF 0.5% (5MG/ML) 10ML ONE (15:15)
[2022-11-06 15:20] LABS: LACTIC ACID 2.3 mmol/L (0.4-2.0)
[2022-11-06] MEDS ORDERED: KETAMINE HCL 50 MG/ML 10ML ONE (15:22)
[2022-11-06] MEDS ORDERED: EPHEDRINE SULFATE 50MG/ML VIAL IM NR ×2 (16:30→17:15)
[2022-11-06] MEDS ORDERED: EPHEDRINE SULFATE 50MG/ML VIAL IV NR ×2 (16:30→17:15)
[2022-11-06] MEDS ORDERED: DEXTROSE 50% WATER 50ML SYRINGE IV NR (19:00)
[2022-11-06 20:11] LABS: ANISOCYTOSIS 1+; HYPOCHROMASIA 1+; MICROCYTOSIS 2+; PLATELET ESTIMATE NORMAL
[2022-11-06] MEDS: FAMOTIDINE 20MG TABLET PO SCH (22:37)
[2022-11-07 00:16] VITALS: BP 101/67; PULSE 85; RESP 18; TEMP 97.4
[2022-11-07 04:00] VITALS: BP 90/65; PULSE 88; RESP 18; TEMP 97.9
[2022-11-07 05:31] LABS: POTASSIUM 5.2 mEq/L (3.5-5.1)
[2022-11-07 05:35] LABS: CALCIUM 9.4 mg/dL (8.5-10.1); CREATININE 2.5 mg/dL (0.6-1.3)
[2022-11-07] MEDS: HYDRALAZINE HCL 10MG TABLET PO SCH ×3 (06:00→21:37)
[2022-11-07 06:19] LABS: BASOPHILS % 0.4 % (0.0-2.0); DIFFERENTIAL COMMENT 0; EOSINOPHILS % 0.6 % (0.0-5.0); HEMATOCRIT. 37.7 % (42.0-52.0); HEMOGLOBIN. 11.7 g/dL (14.0-18.0); LYMPHOCYTES % 8.5 % (20.0-50.0); MEAN CORPUSCULAR HEMOGLOBIN 23.4 pg (28.0-32.0); MEAN CORPUSCULAR VOLUME 75.4 fL (80.0-94.0); MEAN PLATELET VOLUME 9.3 fl (7.4-10.4); MONOCYTES % 13.6 % (2.0-8.0); NEUTROPHILS % 76.9 % (40.0-76.0); PLATELET 272 x1000/uL (130-400); RED BLOOD CELL COUNT 5.01 mill/uL (4.7-6.1); RED CELL DISTRIBUTION WIDTH 20.9 % (11.6-14.6); WHITE BLOOD COUNT 5.7 x1000/uL (4.5-11.0)
[2022-11-07 08:00] VITALS: BP 97/60; PULSE 88; RESP 20; TEMP 97.4
[2022-11-07] MEDS: TAMSULOSIN HCL 0.4MG SR CAPSULE PO SCH (08:58)
[2022-11-07] MEDS: BUMETANIDE 1MG/4ML VIAL IV SCH ×2 (08:58→22:10)
[2022-11-07] MEDS: METOPROLOL SUCCINATE 50MG ER TABLET PO SCH (08:59)
[2022-11-07] MEDS: MORPHINE SULFATE 2 MG/ML CPJ (NOT FOR IM USE) IV PRN (09:08)
[2022-11-07] MEDS ORDERED: SODIUM POLYSTYRENE SULFONATE 15 G/60 ML BOT PO NR (09:45)
[2022-11-07] MEDS: APIXABAN 5 MG TABLET PO SCH ×2 (10:16→18:04)
[2022-11-07 12:00] VITALS: BP 101/58; PULSE 89; RESP 20; TEMP 97.5
[2022-11-07 16:00] VITALS: BP 92/59; PULSE 91; RESP 21; TEMP 98.8
[2022-11-07 19:08] LABS: OVA & PARASITE EXAM Final report (.)
[2022-11-07 20:00] VITALS: BP 99/64; PULSE 93; RESP 24; TEMP 98.4
[2022-11-07] MEDS: FAMOTIDINE 20MG TABLET PO SCH (21:35)
[2022-11-08] VITALS: BP 101/74; PULSE 73; RESP 23; TEMP 98.5
[2022-11-08 04:00] VITALS: BP 103/70; PULSE 82; RESP 11; TEMP 98.2
[2022-11-08 06:16] LABS: HEMATOCRIT. 33.8 % (42.0-52.0); HEMOGLOBIN. 10.4 g/dL (14.0-18.0); MEAN CORPUSCULAR HEMOGLOBIN 23.5 pg (28.0-32.0); MEAN CORPUSCULAR HGB CONC 30.9 g/dL (31.0-37.0); MEAN CORPUSCULAR VOLUME 76.1 fL (80.0-94.0); MEAN PLATELET VOLUME 9.1 fl (7.4-10.4); PLATELET 198 x1000/uL (130-400); RED BLOOD CELL COUNT 4.44 mill/uL (4.7-6.1); RED CELL DISTRIBUTION WIDTH 20.5 % (11.6-14.6); WHITE BLOOD COUNT 6.8 x1000/uL (4.5-11.0)
[2022-11-08] MEDS: HYDRALAZINE HCL 10MG TABLET PO SCH ×3 (06:25→21:33)
[2022-11-08 06:43] LABS: DIFFERENTIAL COMMENT 1
[2022-11-08 06:53] LABS: CHLORIDE 103 mEq/L (98-107); INDEX HEMOLYSI 2 (1-3); INDEX ICTERIC 1 (1-4); INDEX LIPEMIC 1 (1-3); POTASSIUM 3.7 mEq/L (3.5-5.1); SODIUM 138 mEq/L (136-145)
[2022-11-08 07:03] LABS: ALANINE AMINOTRANSFERASE 19 IU/L (13-61); ALBUMIN 2.1 g/dL (3.4-5.0); ASPARTATE AMINOTRANSFERASE 43 IU/L (15-37); BILIRUBIN TOTAL 0.8 mg/dL (0.1-1.0); CALCIUM 8.5 mg/dL (8.5-10.1); CARBON DIOXIDE 32 mEq/L (21-32); CREATININE 2.1 mg/dL (0.6-1.3); GLUCOSE 83 mg/dL (70-105); PHOSPHORUS 2.6 mg/dL (2.5-4.9); PROTEIN TOTAL 5.6 g/dL (6.0-8.3); UREA NITROGEN BLOOD 66 mg/dL (7-21)
[2022-11-08 08:52] VITALS: BP 100/47; PULSE 84; RESP 20; TEMP 97.6
[2022-11-08] MEDS: APIXABAN 5 MG TABLET PO SCH (08:54)
[2022-11-08] MEDS: BUMETANIDE 1MG/4ML VIAL IV SCH ×2 (08:54→21:33)
[2022-11-08] MEDS: TAMSULOSIN HCL 0.4MG SR CAPSULE PO SCH (08:54)
[2022-11-08] MEDS: METOPROLOL SUCCINATE 50MG ER TABLET PO SCH (08:54)
[2022-11-08] MEDS ORDERED: LOV80 SUBCUT (12:21)
[2022-11-08] MEDS ORDERED: METO-385 PO (12:21)
[2022-11-08] MEDS ORDERED: TAMS-11 PO (12:21)
[2022-11-08 12:31] VITALS: BP 105/69; PULSE 88; RESP 20; TEMP 97.3
[2022-11-08 13:11] LABS: MICROCYTOSIS 1+; NUCLEATED RED BLOOD CELLS 1 /100 WBC; PLATELET ESTIMATE NORMAL
[2022-11-08 13:13] LABS: HYPOCHROMASIA 1+
[2022-11-08 13:14] LABS: ANISOCYTOSIS 3+
[2022-11-08 13:27] LABS: BG BASE EXCESS 4.9 mmol/L (-2.0-2.0); BG CARBOXYHEMOGLOBIN 0.9 % (0.5-1.5); BG DEOXYHEMOGLOBIN 6.6 % (0.0-5.0); BG FRACTION INSPIRED OXYGEN 21; BG HCO3 ACT 28.4 mmol/L (22.0-26.0); BG METHEMOGLOBIN 0.4 % (0.0-1.5); BG OXYGEN SATURATION 93.3 % (92.0-98.5); BG OXYHEMOGLOBIN 92.1 % (94.0-97.0); BG PCO2 37.9 mmHg (35.0-45.0); BG PH 7.492 (7.350-7.450); BG PO2 69.9 mmHg (75.0-100.0); BG SAMPLE SITE RIGHT BRACHIAL; BG TOTAL HEMOGLOBIN 11.7 g/dL (12.0-18.0); BG VENT MODE ROOM AIR
[2022-11-08 16:00] VITALS: BP 98/62; PULSE 86; RESP 20; TEMP 97.6
[2022-11-08 20:00] VITALS: BP 100/76; PULSE 97; RESP 12; TEMP 98.1
[2022-11-08] MEDS ORDERED: WARFARIN SODIUM 3MG TABLET PO NR (21:00)
[2022-11-08] MEDS: FAMOTIDINE 20MG TABLET PO SCH (21:32)
[2022-11-08] MEDS: ENOXAPARIN 80MG/0.8ML SYR SUBCUT SCH (21:33)
[2022-11-09] VITALS (7 sets, daily range): BP systolic 101–141; BP diastolic 64–97; PULSE 76–101; RESP 14–28; TEMP 97.2–98.4
[2022-11-09 06:12] LABS: BASOPHILS % 0.5 % (0.0-2.0); DIFFERENTIAL COMMENT 0; EOSINOPHILS % 1.9 % (0.0-5.0); HEMATOCRIT. 33.7 % (42.0-52.0); HEMOGLOBIN. 10.7 g/dL (14.0-18.0); INR 1.3; LYMPHOCYTES % 9.6 % (20.0-50.0); MEAN CORPUSCULAR HEMOGLOBIN 23.8 pg (28.0-32.0); MEAN CORPUSCULAR HGB CONC 31.6 g/dL (31.0-37.0); MEAN CORPUSCULAR VOLUME 75.1 fL (80.0-94.0); MONOCYTES % 14.4 % (2.0-8.0); NEUTROPHILS % 73.6 % (40.0-76.0); PLATELET 228 x1000/uL (130-400); PROTHROMBIN TIME 13.3 sec (9.6-11.0); RED BLOOD CELL COUNT 4.49 mill/uL (4.7-6.1); RED CELL DISTRIBUTION WIDTH 20.5 % (11.6-14.6)
[2022-11-09 06:19] LABS: CHLORIDE 102 mEq/L (98-107); INDEX HEMOLYSI 1 (1-3); INDEX ICTERIC 1 (1-4); INDEX LIPEMIC 1 (1-3); POTASSIUM 3.1 mEq/L (3.5-5.1); SODIUM 138 mEq/L (136-145)
[2022-11-09] MEDS: HYDRALAZINE HCL 10MG TABLET PO SCH ×3 (06:25→22:00)
[2022-11-09 06:28] LABS: ALANINE AMINOTRANSFERASE 19 IU/L (13-61); ALBUMIN 2.2 g/dL (3.4-5.0); ASPARTATE AMINOTRANSFERASE 43 IU/L (15-37); CARBON DIOXIDE 30 mEq/L (21-32); CREATININE 1.6 mg/dL (0.6-1.3); GLUCOSE 107 mg/dL (70-105); PROTEIN TOTAL 5.8 g/dL (6.0-8.3); UREA NITROGEN BLOOD 58 mg/dL (7-21)
[2022-11-09] MEDS: METOPROLOL SUCCINATE 50MG ER TABLET PO SCH (09:05)
[2022-11-09] MEDS: TAMSULOSIN HCL 0.4MG SR CAPSULE PO SCH (09:06)
[2022-11-09] MEDS: ENOXAPARIN 80MG/0.8ML SYR SUBCUT SCH ×2 (09:06→20:30)
[2022-11-09] MEDS: BUMETANIDE 1MG/4ML VIAL IV SCH ×2 (09:07→20:39)
[2022-11-09] MEDS ORDERED: POTASSIUM CHLORIDE 20MEQ TABLET SR PO NR (12:30)
[2022-11-09] MEDS: SODIUM HYPOCHLORITE 0.125% 473ML SOLUTION TOP SCH (20:14)
[2022-11-09] MEDS: FAMOTIDINE 20MG TABLET PO SCH (20:28)
[2022-11-10] VITALS (8 sets, daily range): BP systolic 108–132; BP diastolic 52–80; PULSE 77–100; RESP 15–22; TEMP 97.3–100.2
[2022-11-10] MEDS: HYDRALAZINE HCL 10MG TABLET PO SCH ×3 (06:36→21:28)
[2022-11-10 07:17] LABS: HEMATOCRIT. 34.6 % (42.0-52.0); HEMOGLOBIN. 10.8 g/dL (14.0-18.0); MEAN CORPUSCULAR HEMOGLOBIN 23.5 pg (28.0-32.0); MEAN CORPUSCULAR HGB CONC 31.3 g/dL (31.0-37.0); MEAN CORPUSCULAR VOLUME 75.1 fL (80.0-94.0); MEAN PLATELET VOLUME 8.6 fl (7.4-10.4); PLATELET 222 x1000/uL (130-400); RED BLOOD CELL COUNT 4.61 mill/uL (4.7-6.1); RED CELL DISTRIBUTION WIDTH 20.3 % (11.6-14.6); WHITE BLOOD COUNT 5.4 x1000/uL (4.5-11.0)
[2022-11-10 07:22] LABS: INR 1.2; POTASSIUM 3.4 mEq/L (3.5-5.1)
[2022-11-10 07:31] LABS: DIFFERENTIAL COMMENT 1
[2022-11-10 07:40] LABS: CREATININE 1.8 mg/dL (0.6-1.3)
[2022-11-10] MEDS: METOPROLOL SUCCINATE 50MG ER TABLET PO SCH (08:38)
[2022-11-10] MEDS: TAMSULOSIN HCL 0.4MG SR CAPSULE PO SCH (08:39)
[2022-11-10] MEDS: BUMETANIDE 1MG/4ML VIAL IV SCH ×2 (08:40→23:30)
[2022-11-10] MEDS: ENOXAPARIN 80MG/0.8ML SYR SUBCUT SCH ×2 (08:40→21:46)
[2022-11-10] MEDS: SODIUM HYPOCHLORITE 0.125% 473ML SOLUTION TOP SCH (08:46)
[2022-11-10] MEDS: MORPHINE SULFATE 2 MG/ML CPJ (NOT FOR IM USE) IV PRN ×2 (09:26→21:28)
[2022-11-10 12:56] LABS: BG BASE EXCESS 9.3 mmol/L (-2.0-2.0); BG CARBOXYHEMOGLOBIN 1.1 % (0.5-1.5); BG DEOXYHEMOGLOBIN 8.8 % (0.0-5.0); BG FRACTION INSPIRED OXYGEN 21; BG HCO3 ACT 34.6 mmol/L (22.0-26.0); BG METHEMOGLOBIN 0.4 % (0.0-1.5); BG OXYGEN SATURATION 91.1 % (92.0-98.5); BG OXYHEMOGLOBIN 89.7 % (94.0-97.0); BG PCO2 50.5 mmHg (35.0-45.0); BG PH 7.454 (7.350-7.450); BG PO2 62.3 mmHg (75.0-100.0); BG SAMPLE SITE RIGHT BRACHIAL; BG TOTAL HEMOGLOBIN 11.9 g/dL (12.0-18.0); BG VENT MODE ROOM AIR
[2022-11-10] MEDS: FAMOTIDINE 20MG TABLET PO SCH (21:29)
[2022-11-10] MEDS ORDERED: BUMETANIDE 1MG/4ML VIAL IV SCH (22:30)
[2022-11-11] VITALS: BP 110/82; PULSE 89; RESP 19; TEMP 99
[2022-11-11 04:00] VITALS: BP 104/78; PULSE 83; RESP 19; TEMP 98.1
[2022-11-11] MEDS: HYDRALAZINE HCL 10MG TABLET PO SCH ×3 (06:00→21:28)
[2022-11-11 07:20] LABS: ANISOCYTOSIS 2+; MICROCYTOSIS 2+; PLATELET ESTIMATE NORMAL
[2022-11-11 07:21] LABS: HYPOCHROMASIA 1+
[2022-11-11 08:00] VITALS: BP 110/84; PULSE 78; RESP 18; TEMP 97.5
[2022-11-11] MEDS: BUMETANIDE 1MG/4ML VIAL IV SCH ×2 (09:00→09:39)
[2022-11-11] MEDS: TAMSULOSIN HCL 0.4MG SR CAPSULE PO SCH (09:39)
[2022-11-11] MEDS: METOPROLOL SUCCINATE 50MG ER TABLET PO SCH (09:43)
[2022-11-11] MEDS: ENOXAPARIN 80MG/0.8ML SYR SUBCUT SCH ×2 (09:57→21:28)
[2022-11-11 11:56] LABS: BASOPHILS % 1.3 % (0.0-2.0); DIFFERENTIAL COMMENT 0; EOSINOPHILS % 1.5 % (0.0-5.0); HEMATOCRIT. 33.7 % (42.0-52.0); HEMOGLOBIN. 10.7 g/dL (14.0-18.0); LYMPHOCYTES % 11.2 % (20.0-50.0); MEAN CORPUSCULAR HEMOGLOBIN 23.8 pg (28.0-32.0); MEAN CORPUSCULAR HGB CONC 31.6 g/dL (31.0-37.0); MEAN CORPUSCULAR VOLUME 75.3 fL (80.0-94.0); MEAN PLATELET VOLUME 8.8 fl (7.4-10.4); MONOCYTES % 10.7 % (2.0-8.0); NEUTROPHILS % 75.3 % (40.0-76.0); PLATELET 239 x1000/uL (130-400); RED BLOOD CELL COUNT 4.48 mill/uL (4.7-6.1); RED CELL DISTRIBUTION WIDTH 20.9 % (11.6-14.6); WHITE BLOOD COUNT 5.6 x1000/uL (4.5-11.0)
[2022-11-11 12:00] VITALS: BP 102/74; PULSE 91; RESP 19; TEMP 97.8
[2022-11-11 12:02] LABS: INR 1.2; PROTHROMBIN TIME 12.9 sec (9.6-11.0)
[2022-11-11 12:10] LABS: CHLORIDE 102 mEq/L (98-107); INDEX HEMOLYSI 1 (1-3); INDEX ICTERIC 1 (1-4); INDEX LIPEMIC 1 (1-3); POTASSIUM 3.3 mEq/L (3.5-5.1); SODIUM 139 mEq/L (136-145)
[2022-11-11 12:25] LABS: ALANINE AMINOTRANSFERASE 15 IU/L (13-61); ALBUMIN 2.3 g/dL (3.4-5.0); ASPARTATE AMINOTRANSFERASE 31 IU/L (15-37); CALCIUM 8.4 mg/dL (8.5-10.1); CARBON DIOXIDE 33 mEq/L (21-32); CREATININE 1.5 mg/dL (0.6-1.3); GLUCOSE 138 mg/dL (70-105); PHOSPHORUS 1.8 mg/dL (2.5-4.9); UREA NITROGEN BLOOD 47 mg/dL (7-21)
[2022-11-11 16:00] VITALS: BP 109/68; PULSE 87; RESP 17; TEMP 97.7
[2022-11-11] MEDS: BUMETANIDE 1MG TABLET PO SCH (17:00)
[2022-11-11] MEDS ORDERED: POTASSIUM CHLORIDE 20MEQ TABLET SR PO NR (18:00)
[2022-11-11 20:00] VITALS: BP 109/75; PULSE 94; RESP 16; TEMP 97.9
[2022-11-11] MEDS: FAMOTIDINE 20MG TABLET PO SCH (21:28)
[2022-11-12] VITALS: BP 117/82; PULSE 87; RESP 14; TEMP 98.1
[2022-11-12 04:00] VITALS: BP 109/84; PULSE 86; RESP 16; TEMP 97.7
[2022-11-12] MEDS: HYDRALAZINE HCL 10MG TABLET PO SCH ×3 (05:31→22:00)
[2022-11-12] MEDS ORDERED: LIDOCAINE HCL 1% 10 MG/ML 10ML VIAL ONE (07:40)
[2022-11-12] MEDS: ENOXAPARIN 80MG/0.8ML SYR SUBCUT SCH ×2 (07:52→20:47)
[2022-11-12] MEDS: BUMETANIDE 1MG TABLET PO SCH ×2 (09:00→17:00)
[2022-11-12] MEDS: TAMSULOSIN HCL 0.4MG SR CAPSULE PO SCH (09:00)
[2022-11-12] MEDS: METOPROLOL SUCCINATE 50MG ER TABLET PO SCH (09:00)
[2022-11-12 12:00] VITALS: BP 103/70; PULSE 86; RESP 19; TEMP 98.1
[2022-11-12 16:00] VITALS: BP 101/63; PULSE 76; RESP 19; TEMP 98.8
[2022-11-12 17:20] LABS: INR 1.2; PROTHROMBIN TIME 12.4 sec (9.6-11.0)
[2022-11-12 20:00] VITALS: BP 106/73; PULSE 92; RESP 18; TEMP 97.9
[2022-11-12] MEDS: FAMOTIDINE 20MG TABLET PO SCH (20:46)
[2022-11-13] VITALS: BP 100/79; PULSE 85; RESP 16; TEMP 99.1
[2022-11-13 04:47] VITALS: BP 109/80; PULSE 89; RESP 16; TEMP 98.7
[2022-11-13] MEDS: HYDRALAZINE HCL 10MG TABLET PO SCH ×3 (05:39→22:00)
[2022-11-13 06:40] LABS: POTASSIUM 4.1 mEq/L (3.5-5.1)
[2022-11-13 06:50] LABS: CREATININE 1.5 mg/dL (0.6-1.3)
[2022-11-13 08:00] VITALS: BP 110/70; PULSE 78; RESP 18; TEMP 97.1
[2022-11-13] MEDS: METOPROLOL SUCCINATE 50MG ER TABLET PO SCH (10:17)
[2022-11-13] MEDS: ACETAMINOPHEN 325MG TABLET PO PRN (10:17)
[2022-11-13] MEDS: ENOXAPARIN 80MG/0.8ML SYR SUBCUT SCH ×2 (10:17→21:52)
[2022-11-13] MEDS: TAMSULOSIN HCL 0.4MG SR CAPSULE PO SCH (10:17)
[2022-11-13] MEDS: BUMETANIDE 1MG TABLET PO SCH ×2 (10:17→19:59)
[2022-11-13 12:00] VITALS: BP 101/79; PULSE 100; RESP 20; TEMP 96.1
[2022-11-13 16:00] VITALS: BP 120/60; PULSE 80; RESP 17; TEMP 97.5
[2022-11-13 20:00] VITALS: BP 98/69; PULSE 62; RESP 19; TEMP 97.5
[2022-11-13] MEDS: FAMOTIDINE 20MG TABLET PO SCH (21:40)
[2022-11-14] VITALS: BP 102/68; PULSE 77; RESP 18; TEMP 94.8
[2022-11-14] MEDS: ACETAMINOPHEN 325MG TABLET PO PRN ×2 (00:48→20:15)
[2022-11-14 04:00] VITALS: BP 99/67; PULSE 91; RESP 18; TEMP 97.7
[2022-11-14] MEDS: HYDRALAZINE HCL 10MG TABLET PO SCH ×3 (05:35→22:00)
[2022-11-14 08:00] VITALS: BP 101/69; PULSE 93; RESP 20; TEMP 98.2
[2022-11-14] MEDS: BUMETANIDE 1MG TABLET PO SCH ×2 (09:00→17:45)
[2022-11-14] MEDS: TAMSULOSIN HCL 0.4MG SR CAPSULE PO SCH (09:01)
[2022-11-14] MEDS: METOPROLOL SUCCINATE 50MG ER TABLET PO SCH (09:02)
[2022-11-14] MEDS: ENOXAPARIN 80MG/0.8ML SYR SUBCUT SCH ×2 (09:04→20:34)
[2022-11-14 12:00] VITALS: BP 87/58; PULSE 89; RESP 20; TEMP 97.5
[2022-11-14 16:00] VITALS: BP 89/76; PULSE 90; RESP 21; TEMP 97.2
[2022-11-14 20:00] VITALS: BP 102/57; PULSE 57; RESP 18; TEMP 97.5
[2022-11-14] MEDS: FAMOTIDINE 20MG TABLET PO SCH (20:15)
[2022-11-15] VITALS: BP 95/49; PULSE 81; RESP 18; TEMP 97.2
[2022-11-15 04:00] VITALS: BP 99/72; PULSE 95; RESP 18; TEMP 98.8
[2022-11-15] MEDS: HYDRALAZINE HCL 10MG TABLET PO SCH ×3 (05:36→22:00)
[2022-11-15] MEDS: BUMETANIDE 1MG TABLET PO SCH ×2 (10:54→18:42)
[2022-11-15] MEDS: TAMSULOSIN HCL 0.4MG SR CAPSULE PO SCH (10:54)
[2022-11-15] MEDS: ENOXAPARIN 80MG/0.8ML SYR SUBCUT SCH ×2 (10:57→20:33)
[2022-11-15] MEDS: METOPROLOL SUCCINATE 50MG ER TABLET PO SCH (10:57)
[2022-11-15 20:00] VITALS: BP 98/62; PULSE 91; RESP 20; TEMP 100.2
[2022-11-15] MEDS: FAMOTIDINE 20MG TABLET PO SCH (20:33)
[2022-11-15] MEDS: ACETAMINOPHEN 325MG TABLET PO PRN (20:34)
[2022-11-16] VITALS: PULSE 65; RESP 19; TEMP 98.1
[2022-11-16 04:00] VITALS: BP 100/68; RESP 57; TEMP 98.6
[2022-11-16] MEDS: HYDRALAZINE HCL 10MG TABLET PO SCH ×3 (05:34→21:53)
[2022-11-16 08:00] VITALS: BP 98/66; RESP 18; TEMP 98.6
[2022-11-16] MEDS: TAMSULOSIN HCL 0.4MG SR CAPSULE PO SCH (09:00)
[2022-11-16] MEDS: METOPROLOL SUCCINATE 50MG ER TABLET PO SCH (09:00)
[2022-11-16] MEDS: ENOXAPARIN 80MG/0.8ML SYR SUBCUT SCH ×2 (09:00→20:58)
[2022-11-16] MEDS: BUMETANIDE 1MG TABLET PO SCH ×2 (09:42→17:00)
[2022-11-16 12:00] VITALS: BP 92/62; PULSE 94; RESP 20; TEMP 98.6
[2022-11-16 16:00] VITALS: BP 101/84; PULSE 88; RESP 19; TEMP 97.9
[2022-11-16 20:00] VITALS: BP 104/69; PULSE 89; RESP 18; TEMP 97.9
[2022-11-16] MEDS: FAMOTIDINE 20MG TABLET PO SCH (20:57)
[2022-11-16] MEDS: LOPERAMIDE HCL 2MG CAPSULE PO PRN (23:23)
[2022-11-17] VITALS: BP 106/97; PULSE 102; RESP 18; TEMP 98.7
[2022-11-17 04:00] VITALS: BP 110/76; PULSE 98; RESP 18; TEMP 97.9
[2022-11-17] MEDS: HYDRALAZINE HCL 10MG TABLET PO SCH ×3 (05:14→22:00)
[2022-11-17 08:00] VITALS: BP 103/65; PULSE 101; RESP 22; TEMP 97.4
[2022-11-17] MEDS: BUMETANIDE 1MG TABLET PO SCH ×2 (09:48→17:58)
[2022-11-17] MEDS: METOPROLOL SUCCINATE 50MG ER TABLET PO SCH (09:48)
[2022-11-17] MEDS: TAMSULOSIN HCL 0.4MG SR CAPSULE PO SCH (09:48)
[2022-11-17] MEDS: ENOXAPARIN 80MG/0.8ML SYR SUBCUT SCH (09:49)
[2022-11-17 10:09] LABS: CHLORIDE 102 mEq/L (98-107); INDEX HEMOLYSI 1 (1-3); INDEX ICTERIC 1 (1-4); INDEX LIPEMIC 1 (1-3); POTASSIUM 3.9 mEq/L (3.5-5.1); SODIUM 137 mEq/L (136-145)
[2022-11-17 10:10] LABS: BASOPHILS % 0.8 % (0.0-2.0); EOSINOPHILS % 1.7 % (0.0-5.0); HEMATOCRIT. 31.4 % (42.0-52.0); HEMOGLOBIN. 10.1 g/dL (14.0-18.0); LYMPHOCYTES % 14.4 % (20.0-50.0); MEAN CORPUSCULAR HEMOGLOBIN 24.2 pg (28.0-32.0); MEAN CORPUSCULAR HGB CONC 32.1 g/dL (31.0-37.0); MEAN CORPUSCULAR VOLUME 75.6 fL (80.0-94.0); MEAN PLATELET VOLUME 8.9 fl (7.4-10.4); MONOCYTES % 10.2 % (2.0-8.0); NEUTROPHILS % 72.9 % (40.0-76.0); PLATELET 294 x1000/uL (130-400); RED BLOOD CELL COUNT 4.16 mill/uL (4.7-6.1)
[2022-11-17 10:20] LABS: ALANINE AMINOTRANSFERASE 17 IU/L (13-61); ALBUMIN 2.2 g/dL (3.4-5.0); ASPARTATE AMINOTRANSFERASE 25 IU/L (15-37); CALCIUM 8.2 mg/dL (8.5-10.1); CARBON DIOXIDE 30 mEq/L (21-32); CREATININE 1.6 mg/dL (0.6-1.3); GLUCOSE 124 mg/dL (70-105); PHOSPHORUS 2.9 mg/dL (2.5-4.9); PROTEIN TOTAL 6.1 g/dL (6.0-8.3); UREA NITROGEN BLOOD 43 mg/dL (7-21)
[2022-11-17 10:36] LABS: INR 1.1; PROTHROMBIN TIME 11.8 sec (9.6-11.0)
[2022-11-17 12:00] VITALS: BP 91/69; PULSE 94; RESP 18; TEMP 99.8
[2022-11-17 16:00] VITALS: BP 102/73; PULSE 99; RESP 20; TEMP 99
[2022-11-17 20:00] VITALS: BP 113/63; PULSE 81; RESP 20; TEMP 97.7
[2022-11-17] MEDS: FAMOTIDINE 20MG TABLET PO SCH (21:00)
[2022-11-18] VITALS: BP 106/71; PULSE 96; RESP 20; TEMP 98.1
[2022-11-18 04:00] VITALS: BP 110/64; PULSE 59; RESP 18; TEMP 98.1
[2022-11-18] MEDS: HYDRALAZINE HCL 10MG TABLET PO SCH ×2 (06:00→14:00)
[2022-11-18 07:39] LABS: POTASSIUM 3.8 mEq/L (3.5-5.1)
[2022-11-18 07:48] LABS: CREATININE 1.5 mg/dL (0.6-1.3); INR 1.1; PROTHROMBIN TIME 11.6 sec (9.6-11.0)
[2022-11-18 07:49] LABS: CALCIUM 8.3 mg/dL (8.5-10.1)
[2022-11-18 08:00] VITALS: BP 95/68; PULSE 92; RESP 17; TEMP 98
[2022-11-18 08:11] LABS: BASOPHILS % 0.7 % (0.0-2.0); EOSINOPHILS % 1.9 % (0.0-5.0); HEMATOCRIT. 32.8 % (42.0-52.0); HEMOGLOBIN. 10.4 g/dL (14.0-18.0); LYMPHOCYTES % 18.8 % (20.0-50.0); MEAN CORPUSCULAR HGB CONC 31.7 g/dL (31.0-37.0); MEAN CORPUSCULAR VOLUME 75.7 fL (80.0-94.0); MEAN PLATELET VOLUME 8.8 fl (7.4-10.4); MONOCYTES % 9.8 % (2.0-8.0); NEUTROPHILS % 68.8 % (40.0-76.0); PLATELET 306 x1000/uL (130-400); RED BLOOD CELL COUNT 4.33 mill/uL (4.7-6.1); RED CELL DISTRIBUTION WIDTH 22.5 % (11.6-14.6); WHITE BLOOD COUNT 6.9 x1000/uL (4.5-11.0)
[2022-11-18 08:29] LABS: DIFFERENTIAL COMMENT 1
[2022-11-18] MEDS: METOPROLOL SUCCINATE 50MG ER TABLET PO SCH (09:00)
[2022-11-18] MEDS: BUMETANIDE 1MG TABLET PO SCH (09:04)
[2022-11-18] MEDS: TAMSULOSIN HCL 0.4MG SR CAPSULE PO SCH ×2 (09:08→09:10)
[2022-11-18] MEDS: LOPERAMIDE HCL 2MG CAPSULE PO PRN (10:41)
[2022-11-18] MEDS ORDERED: LIDOCAINE HCL 1% 10 MG/ML 10ML VIAL ONE (11:52)
[2022-11-18] MEDS ORDERED: SODIUM BICARBONATE 4% (2.4MEQ) 5ML VIAL IV ONE (11:52)
[2022-11-18 12:00] VITALS: BP 101/66; PULSE 75; RESP 22; TEMP 99
[2022-11-18 16:00] VITALS: BP 126/60; PULSE 87; RESP 17; TEMP 96
[2022-11-18 20:00] VITALS: BP 90/61; PULSE 88; RESP 18; TEMP 98.1
[2022-11-18] MEDS: FAMOTIDINE 20MG TABLET PO SCH (21:38)
[2022-11-19] VITALS: BP 93/63; PULSE 93; RESP 18; TEMP 98.4
[2022-11-19 04:00] VITALS: BP 94/67; PULSE 102; RESP 19; TEMP 99.1
[2022-11-19] MEDS: HYDRALAZINE HCL 10MG TABLET PO SCH ×3 (05:56→22:00)
[2022-11-19 07:47] VITALS: BP 96/65; PULSE 95; RESP 18; TEMP 98.1
[2022-11-19] MEDS: METOPROLOL SUCCINATE 50MG ER TABLET PO SCH (09:00)
[2022-11-19] MEDS: BUMETANIDE 1MG TABLET PO SCH ×2 (09:00→17:00)
[2022-11-19 12:00] VITALS: BP 94/60; PULSE 96; RESP 18; TEMP 97.9
[2022-11-19 16:00] VITALS: BP 96/70; PULSE 100; RESP 18; TEMP 98
[2022-11-19 20:00] VITALS: BP 95/57; PULSE 95; RESP 20; TEMP 97.5
[2022-11-19] MEDS: FAMOTIDINE 20MG TABLET PO SCH (21:44)
[2022-11-20] VITALS: BP 93/65; PULSE 101; RESP 20; TEMP 97.5
[2022-11-20 04:00] VITALS: BP 99/64; PULSE 95; RESP 20; TEMP 98.1
[2022-11-20] MEDS: HYDRALAZINE HCL 10MG TABLET PO SCH ×3 (06:00→21:20)
[2022-11-20 08:29] VITALS: BP 92/66; PULSE 95; RESP 19; TEMP 97.8
[2022-11-20] MEDS: METOPROLOL SUCCINATE 50MG ER TABLET PO SCH (09:00)
[2022-11-20] MEDS: BUMETANIDE 1MG TABLET PO SCH ×2 (09:20→17:00)
[2022-11-20] MEDS: TAMSULOSIN HCL 0.4MG SR CAPSULE PO SCH (09:22)
[2022-11-20 12:15] VITALS: BP 92/62; PULSE 96; RESP 17; TEMP 98.4
[2022-11-20 16:00] VITALS: BP 98/63; PULSE 23; RESP 20; TEMP 98.8
[2022-11-20] MEDS: ENOXAPARIN 80MG/0.8ML SYR SUBCUT SCH (17:30)
[2022-11-20 20:00] VITALS: BP 96/53; PULSE 95; RESP 20; TEMP 97.9
[2022-11-20] MEDS: FAMOTIDINE 20MG TABLET PO SCH (21:15)
[2022-11-21] VITALS: BP 98/59; PULSE 101; RESP 20; TEMP 97.9
[2022-11-21 04:00] VITALS: BP 90/60; PULSE 113; RESP 20; TEMP 97.1
[2022-11-21] MEDS: HYDRALAZINE HCL 10MG TABLET PO SCH ×3 (05:19→22:00)
[2022-11-21] MEDS: ENOXAPARIN 80MG/0.8ML SYR SUBCUT SCH ×2 (05:20→18:00)
[2022-11-21 08:00] VITALS: BP 98/54; PULSE 102; RESP 20; TEMP 98
[2022-11-21] MEDS: METOPROLOL SUCCINATE 50MG ER TABLET PO SCH (09:00)
[2022-11-21] MEDS: TAMSULOSIN HCL 0.4MG SR CAPSULE PO SCH (09:06)
[2022-11-21] MEDS: BUMETANIDE 1MG TABLET PO SCH ×2 (09:06→17:00)
[2022-11-21 11:56] VITALS: BP 94/71; PULSE 106; RESP 20; TEMP 100.4
[2022-11-21] MEDS: PANTOT AC/MIN OIL/PET HY-PHL OINT (AQUAPHOR) TOP SCH (12:00)
[2022-11-21] MEDS ORDERED: LIDOCAINE HCL 1% 10 MG/ML 10ML VIAL ONE (14:33)
[2022-11-21] MEDS ORDERED: IOHEXOL-300 50 ML BOTTLE IV ONE (14:33)
[2022-11-21 20:00] VITALS: BP 91/51; PULSE 102; RESP 24; TEMP 97.8
[2022-11-21] MEDS: FAMOTIDINE 20MG TABLET PO SCH (21:00)
[2022-11-22] VITALS: BP 107/72; PULSE 102; RESP 20; TEMP 100.9
[2022-11-22] MEDS: HYDRALAZINE HCL 10MG TABLET PO SCH ×3 (06:00→22:00)
[2022-11-22 07:07] VITALS: BP 100/57; PULSE 105; RESP 20; TEMP 100.8
[2022-11-22 08:00] VITALS: BP 108/82; PULSE 109; RESP 20; TEMP 100.2
[2022-11-22] MEDS: METOPROLOL SUCCINATE 50MG ER TABLET PO SCH (09:28)
[2022-11-22] MEDS: TAMSULOSIN HCL 0.4MG SR CAPSULE PO SCH (09:29)
[2022-11-22] MEDS: BUMETANIDE 1MG TABLET PO SCH ×2 (09:29→17:06)
[2022-11-22] MEDS: PANTOT AC/MIN OIL/PET HY-PHL OINT (AQUAPHOR) TOP SCH (09:33)
[2022-11-22 12:00] VITALS: BP 103/73; PULSE 102; RESP 22; TEMP 100.8
[2022-11-22 16:00] VITALS: BP 90/63; PULSE 108; RESP 22; TEMP 101.1
[2022-11-22] MEDS: FAMOTIDINE 20MG TABLET PO SCH (22:10)
[2022-11-23] VITALS: BP 93/67; PULSE 98; RESP 17; TEMP 100.6
[2022-11-23 04:00] VITALS: BP 95/71; PULSE 89; RESP 17; TEMP 98.2
[2022-11-23] MEDS: ENOXAPARIN 80MG/0.8ML SYR SUBCUT SCH (06:00)
[2022-11-23] MEDS: HYDRALAZINE HCL 10MG TABLET PO SCH ×3 (06:00→22:00)
[2022-11-23 08:00] VITALS: BP 101/80; PULSE 111; RESP 20; TEMP 100.2
[2022-11-23] MEDS: BUMETANIDE 1MG TABLET PO SCH ×2 (09:00→17:00)
[2022-11-23] MEDS: METOPROLOL SUCCINATE 50MG ER TABLET PO SCH (09:00)
[2022-11-23] MEDS: PANTOT AC/MIN OIL/PET HY-PHL OINT (AQUAPHOR) TOP SCH (09:00)
[2022-11-23] MEDS: TAMSULOSIN HCL 0.4MG SR CAPSULE PO SCH (10:20)
[2022-11-23 12:00] VITALS: BP 101/80; PULSE 114; RESP 20; TEMP 98.8
[2022-11-23 16:00] VITALS: BP 110/84; PULSE 51; RESP 21; TEMP 96.2
[2022-11-23 20:00] VITALS: BP 101/81; PULSE 82; RESP 20; TEMP 98.2
[2022-11-23] MEDS: FAMOTIDINE 20MG TABLET PO SCH (20:36)
[2022-11-24] MEDS: ACETAMINOPHEN 325MG TABLET PO PRN
[2022-11-24 04:00] VITALS: BP 95/52; PULSE 95; RESP 18; TEMP 98.2
[2022-11-24] MEDS: HYDRALAZINE HCL 10MG TABLET PO SCH ×3 (06:00→21:51)
[2022-11-24] MEDS: ENOXAPARIN 80MG/0.8ML SYR SUBCUT SCH ×2 (06:11→18:00)
[2022-11-24 08:00] VITALS: BP 100/75; PULSE 100; RESP 21; TEMP 99.3
[2022-11-24] MEDS: BUMETANIDE 1MG TABLET PO SCH ×2 (09:00→17:00)
[2022-11-24] MEDS: PANTOT AC/MIN OIL/PET HY-PHL OINT (AQUAPHOR) TOP SCH (09:00)
[2022-11-24] MEDS: TAMSULOSIN HCL 0.4MG SR CAPSULE PO SCH (09:00)
[2022-11-24] MEDS: METOPROLOL SUCCINATE 50MG ER TABLET PO SCH (09:00)
[2022-11-24 12:00] VITALS: BP 96/59; PULSE 98; RESP 20; TEMP 97.9
[2022-11-24 12:42] LABS: HEMATOCRIT. 31.3 % (42.0-52.0); HEMOGLOBIN. 9.9 g/dL (14.0-18.0); MEAN CORPUSCULAR HEMOGLOBIN 24.3 pg (28.0-32.0); MEAN CORPUSCULAR HGB CONC 31.6 g/dL (31.0-37.0); MEAN CORPUSCULAR VOLUME 76.8 fL (80.0-94.0); MEAN PLATELET VOLUME 8.3 fl (7.4-10.4); PLATELET 269 x1000/uL (130-400); RED BLOOD CELL COUNT 4.08 mill/uL (4.7-6.1); RED CELL DISTRIBUTION WIDTH 23.4 % (11.6-14.6); WHITE BLOOD COUNT 11.9 x1000/uL (4.5-11.0)
[2022-11-24 12:51] LABS: DIFFERENTIAL COMMENT 1
[2022-11-24 12:55] LABS: CHLORIDE 101 mEq/L (98-107); INDEX HEMOLYSI 1 (1-3); INDEX ICTERIC 1 (1-4); INDEX LIPEMIC 1 (1-3); POTASSIUM 3.7 mEq/L (3.5-5.1); SODIUM 138 mEq/L (136-145)
[2022-11-24 13:02] LABS: ALANINE AMINOTRANSFERASE 11 IU/L (13-61); ALBUMIN 1.9 g/dL (3.4-5.0); ASPARTATE AMINOTRANSFERASE 22 IU/L (15-37); BILIRUBIN TOTAL 0.9 mg/dL (0.1-1.0); CALCIUM 8.5 mg/dL (8.5-10.1); CARBON DIOXIDE 33 mEq/L (21-32); CREATININE 1.8 mg/dL (0.6-1.3); GLUCOSE 108 mg/dL (70-105); PROTEIN TOTAL 5.8 g/dL (6.0-8.3); UREA NITROGEN BLOOD 43 mg/dL (7-21)
[2022-11-24 13:07] LABS: INR 1.2
[2022-11-24 13:25] LABS: PLATELET ESTIMATE NORMAL
[2022-11-24 13:26] LABS: ANISOCYTOSIS 2+; MICROCYTOSIS 1+; TEAR DROP CELLS 1+
[2022-11-24 16:00] VITALS: BP 98/71; PULSE 89; RESP 20; TEMP 98.1
[2022-11-24 17:10] LABS: POTASSIUM 3.7 mEq/L (3.5-5.1)
[2022-11-24 17:16] LABS: CALCIUM 8.5 mg/dL (8.5-10.1); CREATININE 1.7 mg/dL (0.6-1.3)
[2022-11-24 20:00] VITALS: BP 127/70; PULSE 71; RESP 19; TEMP 98.2
[2022-11-24] MEDS: FAMOTIDINE 20MG TABLET PO SCH (21:51)
[2022-11-25] VITALS: BP 139/66; PULSE 80; RESP 17; TEMP 97.4
[2022-11-25 04:00] VITALS: BP 105/80; PULSE 102; RESP 19; TEMP 98
[2022-11-25] MEDS: ENOXAPARIN 80MG/0.8ML SYR SUBCUT SCH ×2 (06:00→17:32)
[2022-11-25] MEDS: HYDRALAZINE HCL 10MG TABLET PO SCH ×3 (06:00→22:42)
[2022-11-25 08:00] VITALS: BP 103/76; PULSE 54; RESP 19; TEMP 98.2
[2022-11-25 08:51] LABS: HEMATOCRIT. 32.5 % (42.0-52.0); HEMOGLOBIN. 10.4 g/dL (14.0-18.0); MEAN CORPUSCULAR HEMOGLOBIN 24.3 pg (28.0-32.0); MEAN CORPUSCULAR HGB CONC 32.1 g/dL (31.0-37.0); MEAN CORPUSCULAR VOLUME 75.8 fL (80.0-94.0); MEAN PLATELET VOLUME 8.5 fl (7.4-10.4); PLATELET 302 x1000/uL (130-400); RED BLOOD CELL COUNT 4.29 mill/uL (4.7-6.1); RED CELL DISTRIBUTION WIDTH 23.6 % (11.6-14.6); WHITE BLOOD COUNT 10.2 x1000/uL (4.5-11.0)
[2022-11-25] MEDS: TAMSULOSIN HCL 0.4MG SR CAPSULE PO SCH (09:00)
[2022-11-25] MEDS: METOPROLOL SUCCINATE 50MG ER TABLET PO SCH (09:00)
[2022-11-25] MEDS: BUMETANIDE 1MG TABLET PO SCH ×2 (09:00→17:31)
[2022-11-25] MEDS: PANTOT AC/MIN OIL/PET HY-PHL OINT (AQUAPHOR) TOP SCH (09:00)
[2022-11-25 09:30] LABS: CALCIUM 8.4 mg/dL (8.5-10.1); POTASSIUM 3.8 mEq/L (3.5-5.1)
[2022-11-25 09:35] LABS: CREATININE 1.7 mg/dL (0.6-1.3)
[2022-11-25 10:44] LABS: DIFFERENTIAL COMMENT 1
[2022-11-25 12:00] VITALS: BP 102/70; PULSE 102; RESP 20; TEMP 98.1
[2022-11-25 12:15] LABS: PLATELET ESTIMATE NORMAL
[2022-11-25 12:16] LABS: ANISOCYTOSIS 2+
[2022-11-25 12:17] LABS: HYPOCHROMASIA 1+; MICROCYTOSIS 1+
[2022-11-25 16:00] VITALS: BP 98/61; PULSE 99; RESP 20; TEMP 97.9
[2022-11-25 20:00] VITALS: BP 134/83; PULSE 100; RESP 20; TEMP 97.9
[2022-11-25] MEDS: FAMOTIDINE 20MG TABLET PO SCH (21:08)
[2022-11-26] VITALS: BP 104/61; PULSE 100; RESP 18; TEMP 98.8
[2022-11-26 04:00] VITALS: BP 100/64; PULSE 103; RESP 20; TEMP 97.9
[2022-11-26] MEDS: ENOXAPARIN 80MG/0.8ML SYR SUBCUT SCH ×2 (05:50→17:34)
[2022-11-26] MEDS: HYDRALAZINE HCL 10MG TABLET PO SCH ×3 (05:57→22:00)
[2022-11-26] MEDS ORDERED: SODIUM BICARBONATE 4% (2.4MEQ) 5ML VIAL IV ONE (07:29)
[2022-11-26] MEDS ORDERED: LIDOCAINE HCL 1% 10 MG/ML 10ML VIAL ONE (07:29)
[2022-11-26] MEDS: METOPROLOL SUCCINATE 50MG ER TABLET PO SCH (09:00)
[2022-11-26] MEDS: TAMSULOSIN HCL 0.4MG SR CAPSULE PO SCH (09:55)
[2022-11-26] MEDS: PANTOT AC/MIN OIL/PET HY-PHL OINT (AQUAPHOR) TOP SCH (09:57)
[2022-11-26] MEDS: BUMETANIDE 1MG TABLET PO SCH (09:59)
[2022-11-26 12:00] VITALS: BP 103/72; PULSE 99; RESP 20; TEMP 97.5
[2022-11-26 16:00] VITALS: BP 103/72; PULSE 99; RESP 20; TEMP 97.5
[2022-11-26 20:00] VITALS: BP 109/79; PULSE 92; RESP 18; TEMP 98
[2022-11-26] MEDS: FAMOTIDINE 20MG TABLET PO SCH (21:00)
[2022-11-27] VITALS: BP 99/68; PULSE 93; RESP 20; TEMP 97.9
[2022-11-27 04:00] VITALS: BP 102/60; PULSE 98; RESP 20; TEMP 98.9
[2022-11-27] MEDS: HYDRALAZINE HCL 10MG TABLET PO SCH ×3 (05:59→21:47)
[2022-11-27] MEDS: ENOXAPARIN 80MG/0.8ML SYR SUBCUT SCH ×2 (07:00→19:03)
[2022-11-27] MEDS: PANTOT AC/MIN OIL/PET HY-PHL OINT (AQUAPHOR) TOP SCH (09:00)
[2022-11-27] MEDS: METOPROLOL SUCCINATE 50MG ER TABLET PO SCH (09:00)
[2022-11-27] MEDS: TAMSULOSIN HCL 0.4MG SR CAPSULE PO SCH (10:42)
[2022-11-27] MEDS: BUMETANIDE 1MG TABLET PO SCH (10:42)
[2022-11-27 12:00] VITALS: BP 95/67; PULSE 95; RESP 17; TEMP 97.9
[2022-11-27 16:00] VITALS: BP 94/63; PULSE 95; RESP 19; TEMP 98.8
[2022-11-27] MEDS ORDERED: ALBUMIN HUMAN 25GM/100ML (25%) IV NR (16:00)
[2022-11-27 20:00] VITALS: BP 101/76; PULSE 100; RESP 18; TEMP 97.9
[2022-11-27] MEDS: FAMOTIDINE 20MG TABLET PO SCH (21:48)
[2022-11-27] MEDS: MULTIVITAMINS,THER W-MINERALS TABLET PO SCH (21:48)
[2022-11-28] VITALS: BP_SYST 105; BP_SYST 106; BP_DIAS 65; PULSE 102; PULSE 92; RESP 17; TEMP 97.7
[2022-11-28 04:00] VITALS: BP 92/65; PULSE 97; RESP 17; TEMP 97.6
[2022-11-28] MEDS: HYDRALAZINE HCL 10MG TABLET PO SCH ×3 (06:00→21:12)
[2022-11-28] MEDS: ENOXAPARIN 80MG/0.8ML SYR SUBCUT SCH ×2 (06:43→18:51)
[2022-11-28 08:00] VITALS: BP 102/73; PULSE 97; RESP 19; TEMP 97.9
[2022-11-28] MEDS: MULTIVITAMINS,THER W-MINERALS TABLET PO SCH (09:30)
[2022-11-28] MEDS: BUMETANIDE 1MG TABLET PO SCH (09:31)
[2022-11-28] MEDS: TAMSULOSIN HCL 0.4MG SR CAPSULE PO SCH (09:31)
[2022-11-28] MEDS: METOPROLOL SUCCINATE 50MG ER TABLET PO SCH (09:33)
[2022-11-28] MEDS: PANTOT AC/MIN OIL/PET HY-PHL OINT (AQUAPHOR) TOP SCH (09:51)
[2022-11-28 12:00] VITALS: BP 96/68; PULSE 96; RESP 19; TEMP 98.1
[2022-11-28 16:00] VITALS: BP 94/61; PULSE 100; RESP 19; TEMP 97.9
[2022-11-28 20:00] VITALS: BP 99/74; PULSE 97; RESP 24; TEMP 98.9
[2022-11-29] VITALS: BP 99/75; PULSE 98; RESP 20; TEMP 98.2
[2022-11-29 04:00] VITALS: BP 104/73; PULSE 102; RESP 21; TEMP 98.2
[2022-11-29] MEDS: HYDRALAZINE HCL 10MG TABLET PO SCH ×3 (05:25→22:00)
[2022-11-29] MEDS: ENOXAPARIN 80MG/0.8ML SYR SUBCUT SCH ×2 (06:38→18:05)
[2022-11-29 08:00] VITALS: BP 100/74; PULSE 47; RESP 19; TEMP 97.9
[2022-11-29] MEDS: METOPROLOL SUCCINATE 50MG ER TABLET PO SCH (09:00)
[2022-11-29] MEDS: PANTOT AC/MIN OIL/PET HY-PHL OINT (AQUAPHOR) TOP SCH (09:00)
[2022-11-29] MEDS: MULTIVITAMINS,THER W-MINERALS TABLET PO SCH (09:19)
[2022-11-29] MEDS: BUMETANIDE 1MG TABLET PO SCH (09:19)
[2022-11-29] MEDS: TAMSULOSIN HCL 0.4MG SR CAPSULE PO SCH (09:21)
[2022-11-29 12:00] VITALS: BP 86/58; PULSE 106; RESP 19; TEMP 98.2
[2022-11-29 16:00] VITALS: BP 95/72; PULSE 105; RESP 19; TEMP 98.1
[2022-11-29 20:00] VITALS: BP 93/65; PULSE 80; RESP 17; TEMP 97.7
[2022-11-30 04:00] VITALS: BP 97/71; PULSE 71; RESP 17; TEMP 97.7
[2022-11-30] MEDS: HYDRALAZINE HCL 10MG TABLET PO SCH ×3 (05:12→22:00)
[2022-11-30] MEDS: ENOXAPARIN 80MG/0.8ML SYR SUBCUT SCH ×2 (05:23→19:29)
[2022-11-30 08:00] VITALS: BP 99/58; PULSE 105; RESP 19; TEMP 97.9
[2022-11-30] MEDS: MULTIVITAMINS,THER W-MINERALS TABLET PO SCH (08:25)
[2022-11-30] MEDS: METOPROLOL SUCCINATE 50MG ER TABLET PO SCH ×3 (08:27→08:31)
[2022-11-30] MEDS: TAMSULOSIN HCL 0.4MG SR CAPSULE PO SCH (09:00)
[2022-11-30] MEDS: PANTOT AC/MIN OIL/PET HY-PHL OINT (AQUAPHOR) TOP SCH (09:00)
[2022-11-30 12:00] VITALS: BP 99/69; PULSE 107; RESP 18; TEMP 98.6
[2022-11-30 16:00] VITALS: BP 101/72; PULSE 99; RESP 18; TEMP 97.3
[2022-11-30 20:00] VITALS: BP 103/75; PULSE 109; RESP 18; TEMP 98.5
[2022-11-30] MEDS: POLYVINYL ALCOHOL OPHTH DROPS 15ML EACHEYE SCH (23:52)
[2022-12-01] VITALS: BP 102/51; PULSE 103; RESP 18; TEMP 98.8
[2022-12-01 04:00] VITALS: BP 100/68; PULSE 103; RESP 18; TEMP 98.7
[2022-12-01] MEDS: HYDRALAZINE HCL 10MG TABLET PO SCH ×3 (06:00→22:00)
[2022-12-01] MEDS: POLYVINYL ALCOHOL OPHTH DROPS 15ML EACHEYE SCH ×3 (06:44→18:00)
[2022-12-01] MEDS: ENOXAPARIN 80MG/0.8ML SYR SUBCUT SCH ×2 (06:45→18:30)
[2022-12-01 08:00] VITALS: BP 94/63; PULSE 106; RESP 20; TEMP 97.5
[2022-12-01] MEDS: TAMSULOSIN HCL 0.4MG SR CAPSULE PO SCH (08:45)
[2022-12-01] MEDS: MULTIVITAMINS,THER W-MINERALS TABLET PO SCH (08:45)
[2022-12-01] MEDS: METOPROLOL SUCCINATE 50MG ER TABLET PO SCH (08:46)
[2022-12-01] MEDS: PANTOT AC/MIN OIL/PET HY-PHL OINT (AQUAPHOR) TOP SCH (09:00)
[2022-12-01 11:35] LABS: BASOPHILS % 1.9 % (0.0-2.0); EOSINOPHILS % 1.9 % (0.0-5.0); HEMOGLOBIN. 9.7 g/dL (14.0-18.0); LYMPHOCYTES % 8.8 % (20.0-50.0); MEAN CORPUSCULAR HEMOGLOBIN 24.7 pg (28.0-32.0); MEAN CORPUSCULAR HGB CONC 32.4 g/dL (31.0-37.0); MEAN CORPUSCULAR VOLUME 76.4 fL (80.0-94.0); MEAN PLATELET VOLUME 8.4 fl (7.4-10.4); MONOCYTES % 9.7 % (2.0-8.0); NEUTROPHILS % 77.7 % (40.0-76.0); PLATELET 308 x1000/uL (130-400); RED BLOOD CELL COUNT 3.92 mill/uL (4.7-6.1); RED CELL DISTRIBUTION WIDTH 23.6 % (11.6-14.6); WHITE BLOOD COUNT 6.8 x1000/uL (4.5-11.0)
[2022-12-01 11:46] LABS: INR 1.1; PROTHROMBIN TIME 11.9 sec (9.6-11.0)
[2022-12-01 11:52] LABS: ADD RBC MORPHOLOGY NO; DIFFERENTIAL COMMENT 1
[2022-12-01 12:00] VITALS: BP 100/61; PULSE 103; RESP 20; TEMP 98.6
[2022-12-01 12:52] LABS: POTASSIUM 3.9 mEq/L (3.5-5.1)
[2022-12-01 13:05] LABS: CALCIUM 8.6 mg/dL (8.5-10.1); CREATININE 1.6 mg/dL (0.6-1.3); PHOSPHORUS 2.1 mg/dL (2.5-4.9)
[2022-12-01 16:00] VITALS: BP 90/53; PULSE 105; RESP 19; TEMP 98
[2022-12-01 17:51] LABS: CALCIUM 8.3 mg/dL (8.5-10.1); POTASSIUM 3.8 mEq/L (3.5-5.1)
[2022-12-01 17:55] LABS: CREATININE 1.6 mg/dL (0.6-1.3)
[2022-12-01 22:00] VITALS: BP 92/64; PULSE 104; RESP 20; TEMP 100
[2022-12-02] VITALS: BP 103/74; PULSE 107; RESP 18; TEMP 98
[2022-12-02] MEDS: POLYVINYL ALCOHOL OPHTH DROPS 15ML EACHEYE SCH ×4 (00:01→17:28)
[2022-12-02 04:00] VITALS: BP 88/63; PULSE 103; RESP 20; TEMP 97.9
[2022-12-02] MEDS: HYDRALAZINE HCL 10MG TABLET PO SCH ×2 (05:22→13:20)
[2022-12-02] MEDS: ENOXAPARIN 80MG/0.8ML SYR SUBCUT SCH ×2 (05:38→17:44)
[2022-12-02 08:00] VITALS: BP 93/65; PULSE 100; RESP 20; TEMP 97.2
[2022-12-02] MEDS: METOPROLOL SUCCINATE 50MG ER TABLET PO SCH (09:00)
[2022-12-02] MEDS ORDERED: BUMETANIDE 1MG TABLET PO SCH (09:00)
[2022-12-02] MEDS: MULTIVITAMINS,THER W-MINERALS TABLET PO SCH (09:00)
[2022-12-02] MEDS: PANTOT AC/MIN OIL/PET HY-PHL OINT (AQUAPHOR) TOP SCH (09:00)
[2022-12-02 12:00] VITALS: BP 92/60; PULSE 100; RESP 18; TEMP 97.3
[2022-12-02] MEDS: BUMETANIDE 1MG TABLET PO SCH ×2 (14:30→17:23)
[2022-12-02 16:00] VITALS: BP 101/66; PULSE 98; RESP 17; TEMP 97.9
[2022-12-02 20:00] VITALS: BP 113/79; PULSE 104; RESP 18; TEMP 96.6
[2022-12-03] VITALS: BP 114/78; PULSE 108; RESP 20; TEMP 96.4
[2022-12-03] MEDS: POLYVINYL ALCOHOL OPHTH DROPS 15ML EACHEYE SCH ×5 (00:08→23:54)
[2022-12-03 04:00] VITALS: BP 107/83; PULSE 102; RESP 17; TEMP 97.4
[2022-12-03] MEDS: ENOXAPARIN 80MG/0.8ML SYR SUBCUT SCH ×2 (05:55→18:08)
[2022-12-03] MEDS: BUMETANIDE 1MG TABLET PO SCH ×2 (08:06→18:05)
[2022-12-03] MEDS: MIDODRINE HCL 5MG TABLET PO SCH ×3 (08:06→18:07)
[2022-12-03] MEDS: MULTIVITAMINS,THER W-MINERALS TABLET PO SCH (08:06)
[2022-12-03] MEDS: PANTOT AC/MIN OIL/PET HY-PHL OINT (AQUAPHOR) TOP SCH (08:10)
[2022-12-03 12:00] VITALS: BP 100/72; PULSE 102; RESP 20; TEMP 98
[2022-12-03 16:00] VITALS: BP 106/80; PULSE 96; RESP 20; TEMP 99.9
[2022-12-03 20:00] VITALS: BP 108/79; PULSE 71; RESP 17; TEMP 96.5
[2022-12-04] VITALS: BP_SYST 131; BP_SYST 90; BP_DIAS 56; BP_DIAS 84; PULSE 101; RESP 17; TEMP 96.5
[2022-12-04 04:00] VITALS: BP 111/76; PULSE 98; RESP 17; TEMP 96.8
[2022-12-04] MEDS: ENOXAPARIN 80MG/0.8ML SYR SUBCUT SCH ×2 (06:27→17:20)
[2022-12-04] MEDS: POLYVINYL ALCOHOL OPHTH DROPS 15ML EACHEYE SCH ×4 (06:28→23:05)
[2022-12-04] MEDS: MIDODRINE HCL 5MG TABLET PO SCH ×3 (08:23→17:20)
[2022-12-04] MEDS: BUMETANIDE 1MG TABLET PO SCH ×2 (08:23→17:20)
[2022-12-04] MEDS: MULTIVITAMINS,THER W-MINERALS TABLET PO SCH (08:23)
[2022-12-04] MEDS: PANTOT AC/MIN OIL/PET HY-PHL OINT (AQUAPHOR) TOP SCH (09:00)
[2022-12-04 20:00] VITALS: BP 90/58; PULSE 75; RESP 18; TEMP 99.1
[2022-12-05] VITALS: BP 98/73; PULSE 95; RESP 17; TEMP 96.6
[2022-12-05 04:00] VITALS: BP 101/59; PULSE 106; RESP 18; TEMP 97.5
[2022-12-05] MEDS: ENOXAPARIN 80MG/0.8ML SYR SUBCUT SCH ×2 (06:00→17:38)
[2022-12-05] MEDS: POLYVINYL ALCOHOL OPHTH DROPS 15ML EACHEYE SCH ×3 (06:21→17:39)
[2022-12-05 08:00] VITALS: BP 100/67; PULSE 102; RESP 20; TEMP 97.7
[2022-12-05] MEDS: MULTIVITAMINS,THER W-MINERALS TABLET PO SCH (08:03)
[2022-12-05] MEDS: MIDODRINE HCL 5MG TABLET PO SCH ×3 (08:03→17:38)
[2022-12-05] MEDS: BUMETANIDE 1MG TABLET PO SCH ×2 (08:03→17:38)
[2022-12-05] MEDS ORDERED: LIDOCAINE HCL 1% 10 MG/ML 10ML VIAL ONE (08:20)
[2022-12-05] MEDS ORDERED: SODIUM BICARBONATE 4% (2.4MEQ) 5ML VIAL IV ONE (08:20)
[2022-12-05 09:15] LABS: BASOPHILS % 2.6 % (0.0-2.0); EOSINOPHILS % 1.3 % (0.0-5.0); HEMATOCRIT. 33.7 % (42.0-52.0); HEMOGLOBIN. 10.8 g/dL (14.0-18.0); MEAN CORPUSCULAR HEMOGLOBIN 25.1 pg (28.0-32.0); MEAN CORPUSCULAR VOLUME 78.3 fL (80.0-94.0); MEAN PLATELET VOLUME 7.5 fl (7.4-10.4); NEUTROPHILS % 75.1 % (40.0-76.0); PLATELET 304 x1000/uL (130-400); RED CELL DISTRIBUTION WIDTH 23.1 % (11.6-14.6); WHITE BLOOD COUNT 6.9 x1000/uL (4.5-11.0)
[2022-12-05 09:20] LABS: DIFFERENTIAL COMMENT 1
[2022-12-05 09:21] LABS: ADD RBC MORPHOLOGY NO
[2022-12-05 09:22] LABS: INR 1.1; PROTHROMBIN TIME 12.1 sec (9.6-11.0)
[2022-12-05 10:15] LABS: POTASSIUM 3.7 mEq/L (3.5-5.1)
[2022-12-05 10:21] LABS: CALCIUM 8.8 mg/dL (8.5-10.1); CREATININE 1.8 mg/dL (0.6-1.3)
[2022-12-05 12:00] VITALS: BP 101/77; PULSE 99; RESP 19; TEMP 97.7
[2022-12-05 16:00] VITALS: BP 107/79; PULSE 100; RESP 20; TEMP 97.9
[2022-12-05 20:00] VITALS: BP 112/73; PULSE 97; RESP 18; TEMP 97.7
[2022-12-06] VITALS: BP 97/66; PULSE 98; RESP 17; TEMP 98.2
[2022-12-06 04:00] VITALS: BP_SYST 145; BP_SYST 98; BP_DIAS 70; PULSE 63; PULSE 97; RESP 20; TEMP 97.7
[2022-12-06] MEDS: ENOXAPARIN 80MG/0.8ML SYR SUBCUT SCH ×3 (06:00→19:33)
[2022-12-06] MEDS: POLYVINYL ALCOHOL OPHTH DROPS 15ML EACHEYE SCH ×4 (06:00→18:19)
[2022-12-06 06:45] LABS: BASOPHILS % 1.7 % (0.0-2.0); EOSINOPHILS % 1.1 % (0.0-5.0); HEMATOCRIT. 31.9 % (42.0-52.0); HEMOGLOBIN. 10.3 g/dL (14.0-18.0); LYMPHOCYTES % 13.8 % (20.0-50.0); MEAN CORPUSCULAR HGB CONC 32.3 g/dL (31.0-37.0); MEAN CORPUSCULAR VOLUME 77.6 fL (80.0-94.0); MEAN PLATELET VOLUME 7.6 fl (7.4-10.4); MONOCYTES % 9.7 % (2.0-8.0); NEUTROPHILS % 73.7 % (40.0-76.0); PLATELET 265 x1000/uL (130-400); RED BLOOD CELL COUNT 4.11 mill/uL (4.7-6.1); RED CELL DISTRIBUTION WIDTH 23.6 % (11.6-14.6); WHITE BLOOD COUNT 7.2 x1000/uL (4.5-11.0)
[2022-12-06 06:49] LABS: DIFFERENTIAL COMMENT 1
[2022-12-06 07:51] LABS: CALCIUM 8.2 mg/dL (8.5-10.1); POTASSIUM 3.6 mEq/L (3.5-5.1)
[2022-12-06 07:55] LABS: CREATININE 1.7 mg/dL (0.6-1.3)
[2022-12-06 08:00] VITALS: BP 106/79; PULSE 96; RESP 18; TEMP 97.7
[2022-12-06] MEDS: MIDODRINE HCL 5MG TABLET PO SCH ×3 (09:00→18:20)
[2022-12-06] MEDS: MULTIVITAMINS,THER W-MINERALS TABLET PO SCH (09:00)
[2022-12-06] MEDS: PANTOT AC/MIN OIL/PET HY-PHL OINT (AQUAPHOR) TOP SCH (09:00)
[2022-12-06] MEDS: BUMETANIDE 1MG TABLET PO SCH ×2 (09:00→18:20)
[2022-12-06 12:00] VITALS: BP 111/71; PULSE 98; RESP 19; TEMP 98.1
[2022-12-06 16:00] VITALS: BP 99/69; PULSE 93; RESP 19; TEMP 97.6
[2022-12-06 20:00] VITALS: BP 102/67; PULSE 93; RESP 18; TEMP 98.7
[2022-12-07] VITALS: BP 101/62; PULSE 97; RESP 18; TEMP 98.8
[2022-12-07] MEDS: POLYVINYL ALCOHOL OPHTH DROPS 15ML EACHEYE SCH ×4 (00:46→23:53)
[2022-12-07 04:00] VITALS: BP 91/65; PULSE 96; RESP 18; TEMP 96.4
[2022-12-07 08:00] VITALS: BP 114/89; PULSE 92; RESP 20; TEMP 99.1
[2022-12-07] MEDS: BUMETANIDE 1MG TABLET PO SCH ×2 (11:10→17:17)
[2022-12-07] MEDS: MULTIVITAMINS,THER W-MINERALS TABLET PO SCH (11:10)
[2022-12-07] MEDS: MIDODRINE HCL 5MG TABLET PO SCH ×3 (11:12→17:14)
[2022-12-07] MEDS: PANTOT AC/MIN OIL/PET HY-PHL OINT (AQUAPHOR) TOP SCH (11:15)
[2022-12-07 12:00] VITALS: BP 89/49; PULSE 97; RESP 20; TEMP 99
[2022-12-07 16:00] VITALS: BP 104/61; PULSE 102; RESP 20; TEMP 99.7
[2022-12-07] MEDS: ENOXAPARIN 80MG/0.8ML SYR SUBCUT SCH (17:18)
[2022-12-07 20:00] VITALS: BP 90/61; PULSE 104; RESP 17; TEMP 97.9
[2022-12-08] VITALS: BP 107/58; PULSE 67; RESP 18; TEMP 97.7
[2022-12-08 04:00] VITALS: BP 103/81; PULSE 80; RESP 18; TEMP 97.7
[2022-12-08] MEDS: ENOXAPARIN 80MG/0.8ML SYR SUBCUT SCH ×2 (05:56→17:39)
[2022-12-08] MEDS: POLYVINYL ALCOHOL OPHTH DROPS 15ML EACHEYE SCH ×3 (05:57→17:35)
[2022-12-08 06:54] LABS: HEMATOCRIT 33.6 % (42.0-52.0); HEMOGLOBIN 10.8 g/dL (14.0-18.0); MEAN CORPUSCULAR HGB CONC 32.1 g/dL (31.0-37.0); MEAN CORPUSCULAR VOLUME 77.9 fL (80.0-94.0); PLATELET 311 x1000/uL (130-400); RED BLOOD CELL COUNT 4.32 mill/uL (4.7-6.1); RED CELL DISTRIBUTION WIDTH 24.5 % (11.6-14.6)
[2022-12-08 06:57] LABS: POTASSIUM 3.4 mEq/L (3.5-5.1)
[2022-12-08 07:04] LABS: CALCIUM 8.2 mg/dL (8.5-10.1); CREATININE 1.5 mg/dL (0.6-1.3)
[2022-12-08 08:00] VITALS: BP 99/67; PULSE 96; RESP 20; TEMP 97.5
[2022-12-08] MEDS: MULTIVITAMINS,THER W-MINERALS TABLET PO SCH (09:41)
[2022-12-08] MEDS: MIDODRINE HCL 5MG TABLET PO SCH ×3 (09:46→17:35)
[2022-12-08] MEDS ORDERED: POTASSIUM CHLORIDE 20MEQ TABLET SR PO SCH (10:00)
[2022-12-08] MEDS: BUMETANIDE 1MG TABLET PO SCH ×2 (10:08→17:35)
[2022-12-08] MEDS: PANTOT AC/MIN OIL/PET HY-PHL OINT (AQUAPHOR) TOP SCH (10:08)
[2022-12-08 12:00] VITALS: BP 95/54; PULSE 95; RESP 20; TEMP 98.1
[2022-12-08 16:00] VITALS: BP 93/53; PULSE 105; RESP 20; TEMP 98.2
[2022-12-08 20:00] VITALS: BP 92/62; PULSE 98; RESP 22; TEMP 98.8
[2022-12-08 21:55] LABS: HEMATOCRIT 32.2 % (42.0-52.0); HEMOGLOBIN 10.1 g/dL (14.0-18.0); MEAN CORPUSCULAR HEMOGLOBIN 24.6 pg (28.0-32.0); MEAN CORPUSCULAR HGB CONC 31.5 g/dL (31.0-37.0); PLATELET 312 x1000/uL (130-400); RED BLOOD CELL COUNT 4.13 mill/uL (4.7-6.1); RED CELL DISTRIBUTION WIDTH 24.2 % (11.6-14.6); WHITE BLOOD COUNT 9.5 x1000/uL (4.5-11.0)
[2022-12-08 22:05] LABS: POTASSIUM 3.5 mEq/L (3.5-5.1)
[2022-12-08 22:09] LABS: PHOSPHORUS 2.1 mg/dL (2.5-4.9)
[2022-12-09] VITALS: BP 80/51; PULSE 98; RESP 22; TEMP 97.9
[2022-12-09 04:00] VITALS: BP 89/58; PULSE 97; RESP 22; TEMP 96.7
[2022-12-09] MEDS: POLYVINYL ALCOHOL OPHTH DROPS 15ML EACHEYE SCH ×4 (06:00→17:56)
[2022-12-09] MEDS: ENOXAPARIN 80MG/0.8ML SYR SUBCUT SCH ×2 (06:07→17:58)
[2022-12-09 08:00] VITALS: BP 93/71; PULSE 104; RESP 19; TEMP 97.5
[2022-12-09] MEDS: MIDODRINE HCL 5MG TABLET PO SCH ×3 (09:00→16:49)
[2022-12-09] MEDS ORDERED: POTASSIUM-SODIUM PHOSPHATE POWDER PACKET PO SCH (09:00)
[2022-12-09] MEDS: BUMETANIDE 1MG TABLET PO SCH ×3 (09:29→16:49)
[2022-12-09] MEDS: MULTIVITAMINS,THER W-MINERALS TABLET PO SCH (09:29)
[2022-12-09] MEDS: PANTOT AC/MIN OIL/PET HY-PHL OINT (AQUAPHOR) TOP SCH (09:30)
[2022-12-09] MEDS ORDERED: MAGNESIUM 2 G PREMIX 50 ML IV SCH (10:00)
[2022-12-09 12:00] VITALS: BP 97/73; PULSE 99; RESP 19; TEMP 97.9
[2022-12-09 16:00] VITALS: BP 89/65; PULSE 94; RESP 20; TEMP 98.1
[2022-12-09 20:00] VITALS: BP 95/65; PULSE 94; RESP 17; TEMP 97.9
[2022-12-10] VITALS (7 sets, daily range): BP systolic 91–105; BP diastolic 63–69; PULSE 79–104; RESP 17–20; TEMP 97.4–98.1; O2SAT 98
[2022-12-10 05:41] LABS: BASOPHILS % 1.1 % (0.0-2.0); EOSINOPHILS % 1.9 % (0.0-5.0); HEMATOCRIT. 31.9 % (42.0-52.0); HEMOGLOBIN. 10.2 g/dL (14.0-18.0); LYMPHOCYTES % 11.4 % (20.0-50.0); MEAN CORPUSCULAR HEMOGLOBIN 24.9 pg (28.0-32.0); MEAN CORPUSCULAR HGB CONC 31.9 g/dL (31.0-37.0); MEAN CORPUSCULAR VOLUME 78.1 fL (80.0-94.0); MEAN PLATELET VOLUME 7.6 fl (7.4-10.4); MONOCYTES % 9.5 % (2.0-8.0); NEUTROPHILS % 76.1 % (40.0-76.0); PLATELET 265 x1000/uL (130-400); RED BLOOD CELL COUNT 4.08 mill/uL (4.7-6.1); RED CELL DISTRIBUTION WIDTH 24.9 % (11.6-14.6); WHITE BLOOD COUNT 7.6 x1000/uL (4.5-11.0)
[2022-12-10 06:55] LABS: DIFFERENTIAL COMMENT 1
[2022-12-10] MEDS: ENOXAPARIN 80MG/0.8ML SYR SUBCUT SCH ×2 (06:57→17:41)
[2022-12-10] MEDS: POLYVINYL ALCOHOL OPHTH DROPS 15ML EACHEYE SCH ×5 (06:57→23:12)
[2022-12-10 09:10] LABS: POTASSIUM 3.8 mEq/L (3.5-5.1)
[2022-12-10 09:16] LABS: CALCIUM 7.9 mg/dL (8.5-10.1); CREATININE 1.7 mg/dL (0.6-1.3)
[2022-12-10] MEDS: BUMETANIDE 1MG TABLET PO SCH ×2 (09:21→17:40)
[2022-12-10] MEDS: MULTIVITAMINS,THER W-MINERALS TABLET PO SCH (09:22)
[2022-12-10] MEDS: MIDODRINE HCL 5MG TABLET PO SCH ×3 (09:22→17:40)
[2022-12-10] MEDS: PANTOT AC/MIN OIL/PET HY-PHL OINT (AQUAPHOR) TOP SCH (09:26)
[2022-12-10] MEDS ORDERED: SENNOSIDES/DOCUSATE SOD 8.6/50MG TABLET PO PRN (10:15)
[2022-12-10] MEDS ORDERED: IPRATROPIUM/ALBUTEROL 0.5-3(2.5)MG/3ML NEB HHN PRN (10:15)
[2022-12-10 12:45] LABS: PHOSPHORUS 3.1 mg/dL (2.5-4.9)
[2022-12-10] MEDS: FAMOTIDINE 20MG TABLET PO SCH (23:11)
[2022-12-11] VITALS: BP 111/78; PULSE 101; RESP 18; TEMP 98.9
[2022-12-11 04:00] VITALS: BP 115/62; PULSE 84; RESP 18; TEMP 97.8
[2022-12-11 07:07] LABS: HEMATOCRIT 30.8 % (42.0-52.0); MEAN CORPUSCULAR HEMOGLOBIN 25.2 pg (28.0-32.0); MEAN CORPUSCULAR HGB CONC 32.4 g/dL (31.0-37.0); MEAN CORPUSCULAR VOLUME 77.7 fL (80.0-94.0); PLATELET 256 x1000/uL (130-400); RED BLOOD CELL COUNT 3.97 mill/uL (4.7-6.1); RED CELL DISTRIBUTION WIDTH 24.4 % (11.6-14.6)
[2022-12-11 07:34] LABS: POTASSIUM 3.1 mEq/L (3.5-5.1)
[2022-12-11 07:36] LABS: CALCIUM 8.2 mg/dL (8.5-10.1)
[2022-12-11 07:40] LABS: CREATININE 1.6 mg/dL (0.6-1.3); PHOSPHORUS 3.3 mg/dL (2.5-4.9)
[2022-12-11 08:00] VITALS: BP 107/75; PULSE 98; RESP 19; TEMP 98.3
[2022-12-11] MEDS: POLYVINYL ALCOHOL OPHTH DROPS 15ML EACHEYE SCH ×2 (08:03→11:43)
[2022-12-11] MEDS: ENOXAPARIN 80MG/0.8ML SYR SUBCUT SCH (08:03)
[2022-12-11] MEDS: MIDODRINE HCL 5MG TABLET PO SCH ×3 (09:00→17:54)
[2022-12-11] MEDS: PANTOT AC/MIN OIL/PET HY-PHL OINT (AQUAPHOR) TOP SCH (09:00)
[2022-12-11] MEDS ORDERED: POTASSIUM CHLORIDE 20MEQ TABLET SR PO SCH (09:00)
[2022-12-11] MEDS: MULTIVITAMINS,THER W-MINERALS TABLET PO SCH (09:22)
[2022-12-11] MEDS: BUMETANIDE 1MG TABLET PO SCH ×2 (09:23→17:55)
[2022-12-11 12:00] VITALS: BP 98/60; PULSE 95; RESP 17; TEMP 97.2
[2022-12-11] MEDS ORDERED: POTASSIUM CHLORIDE 20MEQ TABLET SR PO NR (16:00)
[2022-12-11 16:04] VITALS: BP 102/63; PULSE 98; RESP 19; TEMP 97.6
[2022-12-11 20:00] VITALS: BP 90/62; PULSE 88; RESP 17; TEMP 98.1
[2022-12-11] MEDS: FAMOTIDINE 20MG TABLET PO SCH (22:29)
[2022-12-12] MEDS: POLYVINYL ALCOHOL OPHTH DROPS 15ML EACHEYE SCH ×3 (00:37→12:00)
[2022-12-12 04:00] VITALS: BP 101/63; PULSE 84; RESP 18; TEMP 97.9
[2022-12-12] MEDS: ENOXAPARIN 80MG/0.8ML SYR SUBCUT SCH ×2 (06:57→18:00)
[2022-12-12 08:00] VITALS: BP 98/69; PULSE 102; RESP 19; TEMP 98.1
[2022-12-12] MEDS: MULTIVITAMINS,THER W-MINERALS TABLET PO SCH (08:58)
[2022-12-12] MEDS: BUMETANIDE 1MG TABLET PO SCH ×2 (08:58→18:15)
[2022-12-12] MEDS: PANTOT AC/MIN OIL/PET HY-PHL OINT (AQUAPHOR) TOP SCH (09:00)
[2022-12-12] MEDS: MIDODRINE HCL 5MG TABLET PO SCH ×3 (09:01→18:15)
[2022-12-12] MEDS ORDERED: MIDO5TAB4 PO (11:40)
[2022-12-12 12:00] VITALS: BP 104/74; PULSE 69; RESP 19; TEMP 97.4
[2022-12-12 16:00] VITALS: BP 100/68; PULSE 113; RESP 18; TEMP 97.4
== END 2022-12-12 19:46 | disposition hospice, home (50) | DRG 264 ==
LOC: ER 02:04 → 3WST 05:50 → 6EST 11-10 18:04
PROVIDERS: ADMIT Internal Medicine; ATTEND Internal Medicine
PROC: 0W9G3ZZ Drainage of Peritoneal Cavity, Percutaneous Approach (ICD-10-PCS; 2022-10-30)
PROC: 0W1G3JW Bypass Peritoneal Cavity to Upper Vein with Synthetic Substitute, Percutaneous Approach (ICD-10-PCS; principal; 2022-11-06)
PROC: 0W9G3ZZ Drainage of Peritoneal Cavity, Percutaneous Approach (ICD-10-PCS; 2022-11-12)
PROC: 0W9G3ZZ Drainage of Peritoneal Cavity, Percutaneous Approach (ICD-10-PCS; 2022-11-19)
PROC: 0W9G3ZZ Drainage of Peritoneal Cavity, Percutaneous Approach (ICD-10-PCS; 2022-11-26)
PROC: 0W9G3ZZ Drainage of Peritoneal Cavity, Percutaneous Approach (ICD-10-PCS; 2022-12-05)
DX: K74.60 Unspecified cirrhosis of liver (principal); J96.21 Acute and chronic respiratory failure with hypoxia; K76.7 Hepatorenal syndrome; I50.23 Acute on chronic systolic (congestive) heart failure; I21.A1 Myocardial infarction type 2; E87.29 Other acidosis; E44.0 Moderate protein-calorie malnutrition; D63.1 Anemia in chronic kidney disease; E83.39 Other disorders of phosphorus metabolism; C78.00 Secondary malignant neoplasm of unspecified lung; K72.00 Acute and subacute hepatic failure without coma; I13.2 Hypertensive heart and chronic kidney disease with heart failure and with stage 5 chronic kidney disease, or end stage renal disease; I27.29 Other secondary pulmonary hypertension; K72.10 Chronic hepatic failure without coma; N18.6 End stage renal disease; E87.6 Hypokalemia; L97.919 Non-pressure chronic ulcer of unspecified part of right lower leg with unspecified severity; I83.019 Varicose veins of right lower extremity with ulcer of unspecified site; R18.8 Other ascites; I83.029 Varicose veins of left lower extremity with ulcer of unspecified site; L97.929 Non-pressure chronic ulcer of unspecified part of left lower leg with unspecified severity; Z20.822 Contact with and (suspected) exposure to COVID-19; L85.3 Xerosis cutis; N45.1 Epididymitis; C61 Malignant neoplasm of prostate; E78.5 Hyperlipidemia, unspecified; E83.42 Hypomagnesemia; F41.9 Anxiety disorder, unspecified; H26.9 Unspecified cataract; K59.00 Constipation, unspecified; R53.81 Other malaise; R94.6 Abnormal results of thyroid function studies; M19.90 Unspecified osteoarthritis, unspecified site; I86.8 Varicose veins of other specified sites; D50.9 Iron deficiency anemia, unspecified; N17.9 Acute kidney failure, unspecified; D56.9 Thalassemia, unspecified; E03.8 Other specified hypothyroidism; E87.5 Hyperkalemia; I08.1 Rheumatic disorders of both mitral and tricuspid valves; I42.9 Cardiomyopathy, unspecified; I50.82 Biventricular heart failure; Z51.5 Encounter for palliative care; I83.009 Varicose veins of unspecified lower extremity with ulcer of unspecified site; J44.9 Chronic obstructive pulmonary disease, unspecified; K80.20 Calculus of gallbladder without cholecystitis without obstruction; K82.8 Other specified diseases of gallbladder; M10.9 Gout, unspecified; L98.492 Non-pressure chronic ulcer of skin of other sites with fat layer exposed; M89.9 Disorder of bone, unspecified; N28.1 Cyst of kidney, acquired; N43.3 Hydrocele, unspecified; N45.3 Epididymo-orchitis; R41.89 Other symptoms and signs involving cognitive functions and awareness; R79.89 Other specified abnormal findings of blood chemistry; Z59.00 Homelessness unspecified; Z79.01 Long term (current) use of anticoagulants; Z79.899 Other long term (current) drug therapy; Z85.118 Personal history of other malignant neoplasm of bronchus and lung; Z68.24 Body mass index [BMI] 24.0-24.9, adult; Z85.46 Personal history of malignant neoplasm of prostate; Z99.81 Dependence on supplemental oxygen; Z82.49 Family history of ischemic heart disease and other diseases of the circulatory system
CPT/HCPCS: 36415; 36598; 36600; 49083; 71045; 71275; 74176; 76700; 76705; 76770; 76870; 80048; 80053; 80061; 80076; 81003; 82040; 82105; 82270; 82375; 82378; 82570; 82607; 82728; 82746; 82805; 82962; 83540; 83550; 83605; 83615; 83735; 83880; 84100; 84132; 84145; 84153; 84300; 84439; 84443; 84484; 85025; 85027; 85044; 85379; 86301; 86850; 86900; 87015; 87045; 87177; 87209; 87426; 87427; 87449; 93005; 93306; 93308; 93970; 93976; 94640; 97110; 97116; 97162; 97164; 97166; 97530; 97535; 99291; A6261; C1893; J0690; J0696; J1644; J1650; J1815; J1940; J2250; J2270; J2370; J2405; J3475; J3480; J3490; J7030; J7060; P9047; Q9967; C1729; G0103